=== PATIENT | male | born 1970 | race Caucasian/White ===

== ENCOUNTER 2019-10-03 14:17 | Outpatient (CLI) | payer OTHER, SELFPAY ==
[2019-10-03 16:19] LABS: Alanine Aminotransferase 28 U/L (4-50); Albumin Level 4.3 g/dL (3.5-5.1); Alkaline Phosphatase 69 U/L (38-126); Aspartate Amino Transferase 26 U/L (17-59); Blood Urea Nitrogen 15 mg/dL (9-20); Calcium 9.1 mg/dL (8.4-10.2); Carbon Dioxide 25 mmol/L (22-30); Chloride 104 mmol/L (98-107); Cholesterol 267 mg/dL (0-200); Estimated Glomerular Filt Rate > 60; Glucose 91 mg/dL (75-110); HDL Direct 56 mg/dL; Potassium 4.1 mmol/L (3.4-5.0); Sodium 138 mmol/L (137-145); Triglycerides 204 mg/dL (<150)
[2019-10-03 16:30] LABS: LDL Cholesterol Direct 175 mg/dL
[2019-10-03 16:49] LABS: Prostate Specific Antigen 0.6 ng/mL (< OR = 4.0)
== END 2019-10-03 14:18 | disposition home or self-care (01) ==
PROVIDERS: PCP Internal Medicine; Visit Provider Internal Medicine
DX: Z00.00 Encounter for general adult medical examination without abnormal findings (principal); Z13.220 Encounter for screening for lipoid disorders; Z12.5 Encounter for screening for malignant neoplasm of prostate
CPT/HCPCS: 36415; 80053; 80061; 84153; G0103

== ENCOUNTER 2020-05-12 08:48 | Outpatient (CLI) | payer OTHER, SELFPAY ==
--- NOTE | ~2020-05-12 | XR_ITS ---
EXAMINATION: XR knee RT 3V DATE: 05/12/2020 09:19 INDICATION: Right knee pain. TECHNIQUE: 3 views of right knee were obtained. COMPARISON: None. FINDINGS: Bone alignment is normal. No fracture. There is mild osteoarthritis of medial and patellofe moral compartments characterized by tiny marginal osteophytes. No knee joint effusion. IMPRESSION: 1. Mild right knee osteoarthritis. Reviewed, dictated and finalized at location A.
== END 2020-05-12 08:49 | disposition home or self-care (01) ==
LOC: ANHIMG 09:02
PROVIDERS: PCP Internal Medicine; Visit Provider Nurse Practitioner
DX: M25.569 Pain in unspecified knee (principal); M17.11 Unilateral primary osteoarthritis, right knee
CPT/HCPCS: 73562

== ENCOUNTER 2020-10-05 08:59 | Outpatient (CLI) | payer OTHER, SELFPAY | END 2020-10-05 09:00 | disposition home or self-care (01) | LOC: ANHCOVIDVC 08:59 | PROVIDERS: PCP Internal Medicine | DX: Z23 Encounter for immunization (principal) | CPT/HCPCS: 0001A; 91300 ==

== ENCOUNTER 2020-10-26 09:06 | Outpatient (CLI) | payer OTHER, SELFPAY | END 2020-10-26 09:07 | disposition home or self-care (01) | LOC: ANHCOVIDVC 09:06 | PROVIDERS: PCP Internal Medicine | DX: Z23 Encounter for immunization (principal) | CPT/HCPCS: 0002A; 91300 ==

== ENCOUNTER 2021-01-10 06:43 | Outpatient (CLI) | payer OTHER, SELFPAY ==
--- NOTE | ~2021-01-10 | MR_ITS ---
EXAMINATION: MR knee RT wo con DATE: 01/10/2021 07:30 INDICATION: Right knee pain TECHNIQUE: Magnetic resonance imaging (MRI) of the right knee was performed without intravenous contr ast. Sequences included coronal PD-weighted FSE, coronal PD-weighted FS FSE, sagittal T2-weighted FS E, sagittal PD-weighted FS FSE and axial PD weighted fat saturated FSE. COMPARISON: None. FINDINGS: Medial compartment: Complex tear of the body and posterior horn of the medial meniscus. There is anterior and cephalad di splacement of a meniscal flap arising from the junction of the body and posterior horn and which is n ow positioned cephalad to the body and deep to the proximal medial collateral ligament. There is part ial thickness cartilage loss with minimal chondral surface regularity along the weightbearing medial femoral condyle and the medial side of the medial tibial plateau. Lateral compartment: Lateral meniscus is normal. Mild chondral surface irregularity without appreciable loss of cartilage thickness at the lateral tibial plateau. Patellofemoral compartment: Chondral fissuring and partial-thickness chondral flap tear at the medial patellar facet involving gr eater than 50% the cartilage thickness and measuring 5 mm in width. Trochlear cartilage is normal. Ligaments and tendons: Posterior cruciate ligament is normal. There is a 7 x 1 x 2 mm intrasubstance ganglion cyst within th e otherwise intact appearing anterior cruciate ligament. The medial collateral ligament and fibular c ollateral ligament complex are normal. Heterotopic ossicle in the distal patellar tendon likely seque la of childhood [place]-Schlatter's disease. Patellar tendon is otherwise unremarkable. The visualized medial and lateral hamstring tendons as well as the iliotibial band are normal. Fluid: Small right knee joint effusion. No loose osteochondral bodies identified. Osseous/other: Normal marrow signal. No fracture or abnormal marrow replacing process. IMPRESSION: 1. Complex medial meniscal tear including a displaced meniscal flap. 2. Mild medial compartment predominant tricompartmental osteoarthritis. 3. Small right knee joint effusion. Reviewed, dictated and finalized at location A.
== END 2021-01-10 06:44 | disposition home or self-care (01) ==
LOC: ANHIMG 06:45
PROVIDERS: PCP Internal Medicine; Visit Provider Orthopaedic Surgery
DX: M25.561 Pain in right knee (principal); S83.231A Complex tear of medial meniscus, current injury, right knee, initial encounter; S83.194A Other dislocation of right knee, initial encounter; M17.11 Unilateral primary osteoarthritis, right knee; M25.461 Effusion, right knee
CPT/HCPCS: 73721

== ENCOUNTER → 2021-06-03 04:04 | Outpatient (CLI) | payer OTHER, SELFPAY ==
[2021-06-03 17:24] LABS: SARS-CoV-2 RNA PCR Negative
== END ==
PROVIDERS: PCP Internal Medicine; Visit Provider Internal Medicine
DX: Z20.822 Contact with and (suspected) exposure to COVID-19 (principal)
CPT/HCPCS: C9803; U0003; U0005

== ENCOUNTER 2021-07-04 00:05 | Day surgery (SDC) | payer OTHER, SELFPAY ==
[2021-06-28 13:30] VITALS: BMI 34.9
--- NOTE | 2021-06-28 13:37 | PC.NURSE ---
Report to the Outpatient Waiting Room, entrance under the green pavilion located off [facility], at time _0830__ on date 07-04-21. OR Time: ___1030_. - You and your visitor will be asked a series of questions to screen for COVID 19 for your protection. - A mask is required within the hospital. - Only one visitor is allowed at this time. Patient visitors will be guided where to wait when not with patient. Preoperative COVID Testing Requirements: No COVID Test needed if: (proof is required; if not received patient will have Rapid Test prior to entry) - Patient has received COVID Vaccine at least 14 days prior to procedure date or - Patient has positive COVID test result within last 90 days of surgery date. COVID Test needed if above criteria is not met If not COVID vaccinated a COVID test must be conducted within 72 hours of surgery and patient is asked to isolate self from time of testing until procedure. You will go to the [facility] for your COVID testing. The [employer] [facility] is located at the corner of [address] from [facility]. You will only be called if COVID results are positive and your surgeon may reschedule your elective surgery date. Patients may have clear liquids (water, carbonated beverages, clear teas, apple juice) until 3 hours prior to surgery with a maximum of 20 ounces. - No food from midnight until time of surgery - Infants may have breast milk until 4 hours before surgery, formula 6 hours prior to surgery. - Children will be allowed to drink immediately following surgery. If applicable, please bring a bottle or sippy cup to assist with drinking. Juice, water, soda, and popsicles are readily available. For infants on formula, please bring formula the day of surgery. Pacifiers are allowed. Take the following medications with a SIP of water the morning of surgery: Medications to discontinue per physician Date to take last dose Please no make-up, nail maltese, hairspray, perfume, deodorant, or body powder the day of surgery. No jewelry (including any body piercings) or valuables the day of surgery, leave them at home. Please take a shower or bath the night before, or the morning of, surgery with an antibacterial soap. Wear comfortable, loose fitting clothing. Children are encouraged to wear pajamas. - Jewelry must be removed prior to entering the operating room. Rings and piercings that are not removed may be cut off. - The hospital will not accept responsibility for valuables. - Please leave all valuables, including medications, at home the day of surgery. If you are going home after surgery, a licensed otr van cdl truck driver must drive you home. - NO public transportation without another adult. - We recommend that an adult stay with you for 24 hours following discharge. - We also recommend that you do not drive, make important decision, drink alcoholic beverages, or take any drugs that were not prescribed by your health care provider for at least 24 hours after your discharge time. For Pediatric surgeries, we recommend two adults accompany the child home (only one inside the building at this time). Follow any additional instructions given to you from your surgeon. Telephone instructions given to __Patient__and asked if any additional questions and then verbalized understanding. Patient advised to call surgeon office or pre surgery nurse liaison [phone] if any additional questions.
--- NOTE | 2021-07-03 10:21 | P.PNAN_ITS ---
Anes - Initial Pre Proc Eval Procedure: Operation Date: 07/04/21 10:30 Proposed Procedures p Right Knee Arthroscopy,Partial Meniscectomy - Wayne Thapa MD Date/Time: 07/03/21 10:21 Surgeon: Wayne Thapa MD Pre Op Diagnosis: Right knee medial meniscal tear Patient Data Age: 51 Gender: M Height: 1.8 m Weight: 113.6 kg Allergies Allergy/AdvReac Type Severity Reaction Status Date / Time No Known Allergies Allergy Unknown Verified 07/04/21 08:39 Home Medications Medication Instructions Recorded Confirmed Type No Home Medications 01/04/21 07/04/21 History Patient hx anesthesia problems: none Family hx anesthesia problems: none Results Review: All pre-operative results and documents have been reviewed as part of the pre-operative evaluation. [facility] Past Medical History Medical History (Updated 07/03/21 @ 10:21 by Arvin Aldana MD) Obesity Osteoarthritis of right knee Tear of medial meniscus of right knee, current Tobacco abuse Family History Family History Other Acute myocardial infarction Diabetes mellitus Family history of arthritis Family history of cardiovascular disease Family history of gout Family history of malignant neoplasm Social History Social History Smoking packs per day: 0.5 Smoking cigarettes per day: 10.0 Years smoked: 30 Smoking pack-years: 15.00 Smoking status: Current every day smoker Tobacco type: cigarettes Alcohol intake: current Drinks per week: 5 Alcohol use details: beer Substance use: current Substance use type: marijuana Living arrangements: with family 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 Informed Consent: The patient's anesthetic plan and its attendant risks and bene fits were discussed with the patient/family/POA. Questions were solicited and answers provided to the satisfaction of the patient/family/POA.
[2021-07-04] VITALS (9 sets, daily range): BP systolic 123–143; BP diastolic 84–93; PULSE 50–67; RESP 10–18; TEMP 36.1–36.2; O2SAT 99–100
[2021-07-04] MEDS: ACETAMINOPHEN 500 MG TABLET 1000 MG PO (08:42)
[2021-07-04] MEDS: LACTATED RINGERS 1,000 ML 30 ML IV CONT (09:06)
[2021-07-04] MEDS: KETOROLAC 15 MG/ML VIAL (*BKC) IV PUSH (09:06)
--- NOTE | 2021-07-04 09:58 | WPDHPUPDATE1 ---
History and Physical Update Update Date/Time: 07/04/21 09:58 History and Physical has been reviewed, including an updated exam of the patient. There are NO changes in the patient's condition. Risks, benefits, and alternatives have been discussed and questions answered. Patient agrees to proceed with procedure.
[2021-07-04] MEDS: ceFAZolin 2 GM/D5W 50 ML 2 GM/50 ML BAG IVPB (10:35)
[2021-07-04] MEDS: LIDOCAINE HCL 1% LOCAL INJ 20 ML VIAL INFILTRATE (11:03)
--- NOTE | 2021-07-04 11:39 | P.OP_ITS ---
Procedure Note - Detailed Date of Procedure 07/04/21 Pre-op Diagnosis Right knee medial meniscal tear Post-op Diagnosis same Procedure Performed Right knee arthroscopy with partial medial meniscectomy Surgeon Wayne Thapa MD Anesthesia general Description of Procedure The patient was identified and proper site identified. He was taken to the operating room and transferred to the OR table placing her supine taking care to pad the torso and extremities. After general anesthetic induction and intubation, a nonsterile tourniquet was placed high on the right thigh but was not used. The right lower extremity was positioned, prepped and draped in usual sterile fashion. 10 cc of 1% lidocaine was injected into the subcutaneous tissue in the area of the portals at start of the procedure, and an additional 10 at the end. The portals were established and the arthroscopy was carried out. Articular cartilage in the anterior compartment showed some fraying and fibrillation which was mild. Lateral meniscal and articular cartilage was in excellent shape. Anterior posterior cruciate ligaments noted to be in continuity. Gutters and pouch were clear. In the medial compartment there was complex tearing of the medial meniscus with a displaced component which could not be reduced. This involved the posterior horn into the midbody. This was contoured back to stable rim with a shaver and then the ArthroCare Wand was used for hemostasis. The knee was flushed with a copious amount of arthroscopic f luid and equipment was removed. Portals were closed with three O nylon suture and a sterile dressing was applied. He tolerated the procedure well, was awakened, extubated and taken to recovery area in stable condition. There were no known intraoperative complications. Estimated blood loss was negligible. He received perioperative antibiotics. Estimated Blood Loss 15 Tourniquet Time 0 Drains No Packing No Pathology none sent Complications No immediate complications Condition stable Disposition PACU
[2021-07-04] MEDS: oxyCODONE HCL (*CRX) 5 MG TAB IR PO (13:17)
== END 2021-07-04 13:56 | disposition home or self-care (01) ==
PROVIDERS: PCP Internal Medicine; Visit Provider Orthopaedic Surgery
PROC: (CPT 29870; principal; 2021-07-04 10:30)
DX: M23.221 Derangement of posterior horn of medial meniscus due to old tear or injury, right knee (principal); M17.11 Unilateral primary osteoarthritis, right knee; E66.9 Obesity, unspecified; M25.461 Effusion, right knee; Z68.35 Body mass index [BMI] 35.0-35.9, adult; F17.210 Nicotine dependence, cigarettes, uncomplicated; F12.90 Cannabis use, unspecified, uncomplicated
CPT/HCPCS: 29881; A9270; J0690; J1100; J1170; J1885; J2250; J2405; J2704; J3010; J7120

== ENCOUNTER 2021-07-07 07:15 | Outpatient (RCR) | payer OTHER, SELFPAY ==
--- NOTE | 2021-07-07 10:52 | PTOPEVAL ---
Thank you for referring Finn Valverde to [facility].? The patient is scheduled to be seen for therapy? 2 x/week for 5 weeks. Please review, sign, date and return this plan of care DAYRON. I agree with and certify that the following plan of care is medically necessary. Referring Physician Date Attending Provider: Wayne Thapa MD Problem Diagnosis s/p arthroscopic surgery right knee, torn medial meniscus Onset 07/04/21 Additional Evaluation Detail He started having right knee pain ~ 1 yrs ago. No known injury Subjective Information He c/o knee soreness since Query Text:As Reported By Patient/ surgery with occasional sharp Family pain. He is not performing any exercises. 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 Reports limitations with prolonged standing and steps. Limitation with knee motion. Pain Assessment Right Knee(s) Reported Pain Level 5 Pain Description Aching,Sharp Pain Frequency Acute,Intermittent Lowest Pain Intensity 0 Greatest Pain Intensity 5 Pain Aggravating Factors Bending,Exercise/Activity, Prolonged Position,Stair Climbing,Weight Bearing/ Standing Lower Extremity Range of Motion General Lower Extremity Range of Motion Gross Lower Extremity Range of Motion left knee ROM: 0-125dg Knee Range of Motion Right Knee Flexion Range of Motion - Active 120 Knee Extension Range of Motion - Active -4 Lower Extremity Muscle Strength Testing Hip Strength Right Hip Flexion Strength 3 Fair Hip Extension Strength 4- Good - Hip Abduction Strength 4- Good - Knee Strength Right Knee Flexion Strength 4- Good - Knee Extension Strength 3 Fair Knee Strength Comments no extensor lag noted with SLR Muscle Length Testing Muscle Length Testing Piriformis w/Hip Neutral (R) Severe Tightness,(L) Severe Tightness Left Hamstring Length -35:(90 - 90 Position) Right Hamstring Length -35:(90 - 90 Position) Posture Posture Standing Position Weight Distribution Weight Shifted Left Hip Posture (L) Externally Rotated,(R) Externally Rotated Knee Posture (R) Excess Flexion Patellar Posture (L) Infer
--- NOTE | 2021-07-11 07:25 | PCPTNOTE ---
Patient called & cancelled scheduled appointment this date due to no reason.
--- NOTE | 2021-07-13 08:01 | PCPTNOTE ---
Pt called and cancelled his remaining visits due to decided to attend therapy closer by home.
--- NOTE | 2021-07-13 08:02 | PCPTNOTE ---
Admitting Provider: Attending Provider: Wayne Thapa MD Patient:Finn Valverde Date of :1970 Physical Therapy Discharge Summary Patient has not returned for any further treatments since 07/07/2021, due to has decided to attend therapy closer to home. He will be discharged at this time. Patient?s initial visit was on 07/07/2021 07:30 and he had a total of 1 visits. The goals have been not met due to only 1 visit. Thank you for referring this patient to [facility]. Please review, sign, date and return this discharge summary DAYRON. I have been updated about the patient's current status and I agree with discharge from the above service at this time. Referring Physician Date
== END 2021-07-13 12:00 | disposition home or self-care (01) ==
LOC: ANHPT 07:15
PROVIDERS: PCP Internal Medicine; Visit Provider Orthopaedic Surgery
DX: Z48.89 Encounter for other specified surgical aftercare (principal); Z98.890 Other specified postprocedural states
CPT/HCPCS: 97014; 97110; 97161; G0283

== ENCOUNTER 2022-02-14 15:45 | Inpatient (IN) | payer OTHER, SELFPAY ==
--- NOTE | ~2022-02-14 | CT_ITS ---
EXAMINATION: CT abdomen pelvis w con DATE: 02/14/2022 17:59 INDICATION: No BM 4 days, hx of hernia repair, abd pain TECHNIQUE: Computed tomography (CT) of the abdomen and pelvis was performed with 100 mL Omnipaque-300 intravenous contrast. Automated exposure control and iterative reconstruction technique were employe d. The dose-length product was 1297.07 mGy-cm. COMPARISON: None. FINDINGS: Lower thorax: Peripheral right lower lobe intrapulmonary lymph node versus granuloma. Liver: Enlarged fatty infiltrated liver. Biliary/Gallbladder: Gallbladder is absent. No bile duct dilation. Pancreas: No mass or duct dilation. Spleen: Normal. Adrenals:No mass. Kidneys: Scattered bilateral hypodensities that are too small to characterize but most likely represe nt cysts. GI tract: No small or large bowel dilation. Normal appendix. Short segment distal sigmoid wall thicke keila with surrounding inflammatory change and a focus of extraluminal gas extending superiorly into t he adjacent mesenteric fat. Mesentery/Peritoneum: No ascites, mass, or free air, except as noted above. Retroperitoneum: No mass. Minimal atherosclerotic calcifications. Pelvis: Pelvic organs are within normal limits. Soft Tissues: Bilateral fat-containing inguinal hernias. Bones: No acute osseous finding. IMPRESSION: Complicated acute sigmoid diverticulitis, with contained perforation. Results reported telephonically to Paco Stinson APRN by Dr. Melo at 6:05 PM on 02/14/2022. Reviewed, dictated and finalized at location K. IMPRESSION: Complicated acute sigmoid diverticulitis, with contained perforation. Results reported telephonically to Paco Stinson APRN by Dr. Melo at 6:05 PM o n 02/14/2022.
--- NOTE | ~2022-02-14 | XR_ITS ---
EXAMINATION: XR abdomen obstructive series DATE: 02/15/2022 07:46 INDICATION: Acute diverticulitis. TECHNIQUE: Frontal supine and upright views of the abdomen were obtained. COMPARISON: CT dated 02/14/2022 FINDINGS: Moderate amount of gas scattered throughout the colon. No dilated loops of gas-filled small bowel to suggest obstruction. No free intraperitoneal gas. Multiple cholecystectomy clips in right upper quadr ant and likely dropped clip in the deep pelvis. Visualized lung bases are clear. Heart size is normal . IMPRESSION: 1. No free intraperitoneal gas or dilated gas-filled loops of bowel to suggest obstruction. Reviewed, dictated and finalized at location A.
[2022-02-14 15:49] VITALS: BP 149/79; PULSE 95; RESP 16; TEMP 37.9; O2SAT 99
--- NOTE | 2022-02-14 16:53 | ED.ABDPAIN ---
HPI - Abdominal Pain General Chief Complaint: Abdominal Pain Stated Complaint: abd pain, vomiting Time Seen by Provider: 02/14/22 16:51 History of Present Illness HPI narrative: 51-year-old male presents to the emergency room for evaluation of constipation and abdominal pain. Patient has a history of a cholecystectomy and inguinal hernia repair. States that he has not had a bowel movement since Sunday. Attempted to take magnesium citrate this morning, and he threw it back up. Denies any localized abdominal pain or nausea. Patient states he has had no p.o. intake in 24 hours. States pain radiates into his back and into his legs. Related Data Home Medications Medication Instructions Recorded Confirmed No Home Medications 07/19/21 02/14/22 Allergies Allergy/AdvReac Type Severity Reaction Status Date / Time No Known Allergies Allergy Unknown Verified 02/14/22 15:52 Review of Systems Review of Systems: CONSTITUTIONAL: Denies fever, chills, or sweats. EYES: Denies visual changes, redness, or discharge. ENT: Denies rhinorrhea, congestion, sore throat, or otalgia. CARDIOVASCULAR: Denies chest pain, palpitations, or edema. RESPIRATORY: Denies cough or dyspnea. GASTROINTESTINAL: Reports generalized abdominal pain and constipation GENITOURINARY: Denies dysuria or hematuria. SKIN: Denies rash or itching. MUSCULOSKELETAL: Denies back pain, joint pain, or myalgia. NEUROLOGIC: Denies headache, numbness, dizziness, or weakness. PSYCHIATRIC: Denies anxiety or depression. [facility] Past Medical History Medical History Obesity Osteoarthritis of right knee Tear of medial meniscus of right knee, current Tobacco abuse Surgical History Surgical History History of arthroscopy of right knee July 04, 2021 Partial medial meniscectomy Family History Family History Mother Family history of malignant neoplasm IBS (irritable bowel syndrome) Father Family history of gout Family history of cardiovascular disease Diabetes mellitus Family history of arthritis Acute myocardial infarction Sibling Family history of malignant neoplasm Social History Social History Smoking packs per day: 0.5 Smoking cigarettes per day: 10.0 Years smoked: 30 Smoking pack-years: 15.00 Smoking status: Current every day smoker Tobacco type: cigarettes Alcohol intake: current Drinks per week: 5 Alcohol use details: beer Substance use: current Substance use type: marijuana 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 HEAD: Normocephalic, atraumatic. EYES: Conjunctivae normal, PERRLA and EOMI. CHEST: Clear to auscultation. No respiratory distress. No wheezes rales or rhonchi. No tenderness. HEART: Regular rate and rhythm. No murmur heard. Normal peripheral pulses. ABDOMEN: Soft, distended, hypoactive bowel sounds. BACK: No CVA tenderness SKIN: Warm, dry, no rash. No noted wounds NEURO: No focal deficits. Alert and oriented x3. MAEW. CN's II-XI intact bilaterally, normal gait PSYCH: Cooperative. Normal mood and affect. Course Vital Signs Vital signs: Vital Signs Temperature 37.9 C H 02/14/22 15:49 Pulse Rate 95 02/14/22 15:49 Respiratory Rate 16 02/14/22 15:49 Blood Pressure 149/79 H 02/14/22 15:49 Pulse Oximetry 99 02/14/22 15:49 Temperature 36.1 C L 02/16/22 05:19 Pulse Rate 68 02/16/22 05:19 Respiratory Rate 16 02/16/22 05:19 Blood Pressure 129/78 02/16/22 05:19 Pulse Oximetry 98 02/16/22 05:19 Oxygen Delivery Room Air 02/16/22 08
[2022-02-14 17:03] LABS: Basophils Absolute Auto 0.1 K/mm3 (0.0-0.1); Basophils Percent Auto 0.3 % (0.2-1.2); Hematocrit 44.5 % (42.0-52.0); Hemoglobin 14.6 g/dL (14.0-18.0); Immature Granulocyte Absolute 0.07 K/mm3 (0.00-0.031); Immature Granulocyte Percent A 0.4 % (0-0.5); Lymphocytes Absolute Auto 0.57 K/mm3 (0.9-3.2); Lymphocytes Percent Auto 3.5 % (18.3-44.2); Mean Corpuscular HGB Conc 32.8 g/dl (32-36); Mean Corpuscular Hemoglobin 29.6 pg (26-34); Mean Corpuscular Volume 90.1 fl (80-100); Mean Platelet Volume 8.6 fl (7.4-10.4); Monocytes Absolute Auto 1.1 K/mm3 (0.1-0.6); Monocytes Percent Auto 6.5 % (2.6-8.5); Neutrophils Absolute Auto 14.7 K/mm3 (1.3-6.7); Neutrophils Percent Auto 89.3 % (45.5-73.1); Platelet Count Result 231 k/mm3 (150-375); Red Blood Count 4.94 M/mm3 (4.6-6.20); Red Cell Distribution Width 13.5 % (11.5-14.5); White Blood Count 16.4 K/mm3 (4.5-10.0)
[2022-02-14 17:11] LABS: Alanine Aminotransferase 21 U/L (6-50); Albumin Level 4.3 g/dL (3.5-5.1); Alkaline Phosphatase 73 U/L (38-126); Anion Gap 5 mmol/L (8-16); Aspartate Amino Transferase 19 U/L (17-59); Bilirubin,Total 1.2 mg/dL (0.2-1.3); Blood Urea Nitrogen 10 mg/dL (9-20); Calcium 8.4 mg/dL (8.4-10.2); Carbon Dioxide 27 mmol/L (22-30); Chloride 103 mmol/L (98-107); Estimated CRCL calculation 95 ml/min; Estimated Glomerular Filt Rate > 60; Glucose 132 mg/dL (65-110); Lipase 37 U/L (23-300); Potassium 3.7 mmol/L (3.4-5.0); Sodium 135 mmol/L (137-145)
[2022-02-14 17:26] LABS: Appearance Urine Clear (Clear); Bilirubin Urine 1+ (Negative); Blood Urine Trace-lysed (Negative); Color Urine Yellow (Yellow); Glucose Urine UA Negative (Negative); Ketones Urine 1+ mg/dL (Negative); Leukocyte Esterase Ur Negative LEU/UL (Negative); Nitrate Urine Negative (Negative); Protein Urine 1+ mg/dL (Negative); Specific Grav Ur 1.025 (1.001-1.035); Urobilinogen Urine 0.2 mg/dL (<2.0)
[2022-02-14 17:36] LABS: Mucus Urine Moderate /lpf; Squamous Epithelial Cell Urine Rare /hpf (Few); WBC Urine 0-3 /hpf
[2022-02-14 17:37] LABS: Add Urine Microscopic? YES
[2022-02-14 18:35] VITALS: BP 147/82; PULSE 78; RESP 16; TEMP 36.8; O2SAT 98
[2022-02-14 19:19] VITALS: BP 146/86; PULSE 84; RESP 18; TEMP 36.8; O2SAT 100
[2022-02-14] MEDS: BISACODYL 10 MG SUPPOSITORY RECTAL (19:37)
[2022-02-14 20:30] VITALS: BP 136/80; PULSE 70; RESP 16; TEMP 36.4; O2SAT 98
[2022-02-14 21:08] VITALS: BMI 34.4
[2022-02-14 21:13] VITALS: BP 133/69; PULSE 73; RESP 16; TEMP 36.4; O2SAT 99
--- NOTE | 2022-02-14 21:19 | ADMGEN ---
This patient, Finn Valverde, was admitted to Medical Room 349-01. Patient/family oriented to hospital policies and general routines including ID bracelet, bed and alarms, visiting hours, pain management, procedures, bathroom and other care routines, personal items, smoking policy, room service/diet, and visiting hours. Information on how to activate the Rapid Response Team has been discussed. Patient/Family are encouraged to report perceived risks to care and to ask questions if they do not understand what they are told or what they should do.
[2022-02-14] MEDS: SODIUM CHLORIDE 0.9% IV 1,000 ML 125 ML IV CONT (21:22)
[2022-02-15] MEDS: ACETAMINOPHEN 500 MG TABLET 1000 MG PO ×3 (01:07→18:51)
--- NOTE | 2022-02-15 01:08 | PM.IMHP ---
H&P: HPI History of Present Illness Date/Time: 02/15/22 01:08 Chief Complaint: Lower abdominal pain Narrative: This is a 51-year-old white male who presented to the emergency room here at [place] earlier today on 02/15/2020 to for evaluation of constipation and abdominal pain.? Patient has a history of a cholecystectomy asif right inguinal hernia repair.? States that he has not had a bowel movement since F Sunday.? Attempted to take magnesium citrate this morning, and he threw it back up.? Denies any localized abdominal pain or nausea.? Patient states he has had no p.o. intake in 24 hours.? States pain radiates into his back and into his legs. work[place] [id number] with most the rest of his labs looking normal although he had 89% elevation in neutrophils. CT scan of the abdomen and pelvis revealed a sigmoid diverticulitis with perforation and a contained abscess. This is fairly small in the mid sigmoid colon. Patient also was noted to have full fatty liver disease on the CT. He is admitted now for observation and IV antibiotics with bowel rest. Review of Systems Review of Systems: All systems reviewed & are unremarkable except as noted in HPI and below (HPI) Constitutional: Constitutional: Reports as per HPI, Denies chills and Denies fever(s) Eyes: Eyes: Reports no additional eye complaints ENT: Reports Normal hearing present and Denies dizziness Cardiovascular: Cardiovascular: Reports no additional cardiovascular complaints, Denies chest pain and Denies irregular heart rhythm Respiratory: Respiratory: Reports no additional respiratory complaints Gastrointestinal: Gastrointestinal: Reports no additional gastrointestinal complaints, Denies abdominal pain and Denies bloating Comments: Patient typically has a bowel movement every day. Patient has not had a colonoscopy in the past. Patient has never previously had an episode of diverticulitis that he remembers. Patient has lso had his gallbladder out and also had a groin hernia fixed many years ago. Genitourinary: Genitourinary: Denies hematuria Musculoskeletal: Musculoskeletal: Denies back pain Integumentary/Breasts: Skin/Breast: Reports system reviewed and no additional complaints, except as docu Neurologic: Reports Normal hearing present, Denies Abnormal speech present, Denies confusion and Denies dizziness Psychiatric: Psychiatric: Reports no additional psychiatric complaints and Denies confusion Endocrine: Endocrine: Reports no additional endocrine complaints Hematologic/Lymphatic: Hematologic/Lymphatic: Denies easy bleeding and Denies easy bruising Allergic/Immunologic: Allergic/Immunologic: Reports no additional allergic/immunologic complaints PMFSH Past Medical History Medical History Obesity Osteoarthritis of right knee Tear of medial meniscus of right knee, current Tobacco abuse Surgical History Surgical History History of arthroscopy of right knee July 04, 2021 Partial medial meniscectomy Family History Family History Mother Family history of malignant neoplasm IBS (irritable bowel syndrome) Father Family history of gout Family history of cardiovascular disease Diabetes mellitus Family history of arthritis Acute myocardial infarction Sibling Family history of malignant neoplasm Social History Social History Smoking packs per day: 0.5 Smoking cigarettes per day: 10.0 Years smoked: 30 Smoking pack-years: 15.00 Smoking status: Current every day smoker Tobacco type: cigarettes Alcohol intake: current Drinks per week: 5 Alcohol use details: beer Substance use: current Substance use type: marijuana Additional occupation/education comments: [employer]
[2022-02-15] MEDS: SODIUM CHLORIDE 0.9% IV 1,000 ML 125 ML IV CONT ×2 (04:39→13:54)
[2022-02-15 04:40] VITALS: BP 140/64; PULSE 70; RESP 16; TEMP 36.1; O2SAT 99
[2022-02-15] MEDS: HYDROcodone/acetaminophen (*CRX) 7.5-325 MG TABLET 1 TAB PO (04:40)
[2022-02-15 06:00] LABS: Basophils Percent Auto 0.3 % (0.2-1.2); Eosinophils Percent Auto 0.1 % (0-4.4); Hematocrit 41.7 % (42.0-52.0); Hemoglobin 14.1 g/dL (14.0-18.0); Immature Granulocyte Absolute 0.07 K/mm3 (0.00-0.031); Immature Granulocyte Percent A 0.5 % (0-0.5); Lymphocytes Absolute Auto 1.23 K/mm3 (0.9-3.2); Lymphocytes Percent Auto 8.5 % (18.3-44.2); Mean Corpuscular HGB Conc 33.8 g/dl (32-36); Mean Corpuscular Hemoglobin 30.1 pg (26-34); Mean Corpuscular Volume 88.9 fl (80-100); Mean Platelet Volume 8.7 fl (7.4-10.4); Monocytes Absolute Auto 0.8 K/mm3 (0.1-0.6); Monocytes Percent Auto 5.6 % (2.6-8.5); Neutrophils Absolute Auto 12.4 K/mm3 (1.3-6.7); Platelet Count Result 224 k/mm3 (150-375); Red Blood Count 4.69 M/mm3 (4.6-6.20); Red Cell Distribution Width 13.4 % (11.5-14.5); White Blood Count 14.5 K/mm3 (4.5-10.0)
[2022-02-15 06:16] LABS: Lactic Acid Reflex 0.8 mmol/L (0.7-2.0)
[2022-02-15 06:17] LABS: Anion Gap 7 mmol/L (8-16); Blood Urea Nitrogen 8 mg/dL (9-20); Calcium 8.3 mg/dL (8.4-10.2); Carbon Dioxide 23 mmol/L (22-30); Chloride 106 mmol/L (98-107); Estimated CRCL calculation 96 ml/min; Estimated Glomerular Filt Rate > 60; Glucose 122 mg/dL (65-110); Magnesium 2.5 mg/dL (1.6-2.3); Potassium 3.4 mmol/L (3.4-5.0); Sodium 136 mmol/L (137-145)
[2022-02-15] MEDS: ENOXAPARIN 40 MG/0.4 ML SYRINGE SUB-Q (08:54)
[2022-02-15 09:55] VITALS: O2SAT 96
--- NOTE | 2022-02-15 10:36 | PC.NURSE ---
Per Dr. Randhawa's H&P report, plan for patient is bowel rest, IV fluids, and IV antibiotic therapy. Patient has no orders for antibiotics. Called preference one for Dr. Randhawa and left message with Nellie for orders.
[2022-02-15 14:00] VITALS: BP 117/61; PULSE 73; RESP 19; TEMP 36.2; O2SAT 97
--- NOTE | 2022-02-15 16:54 | PM.PNGS ---
Progress Note: A&P Assessment and Plan (1) Diverticulitis of large intestine with perforation and abscess without bleeding: Code(s): K57.20 - Diverticulitis of large intestine with perforation and abscess without bleeding Status: Acute Assessment and Plan: Clinically improving. White blood cell count trending down. Abdominal pain is less today. Continue IV Zosyn. Will advance to full liquids. Stop IV fluids. Consult the dietitian for education on low versus high-fiber diet. We will repeat labs tomorrow morning. Could potentially discharge in the next 1-2 days if he continues to improve. (2) Obesity: Code(s): E66.9 - Obesity, unspecified Status: Acute (3) Tobacco abuse: Code(s): Z72.0 - Tobacco use Status: Acute Plan I have discussed the patient's case and plan of care with Dr. Randhawa. Subjective Subjective Date/Time Seen: 02/15/22 16:54 Patient reports: no new complaints, feels better, pain is less, tolerating liquids well, flatus, diarrhea (X3 today, no blood in stool) and afebrile Interval history: Patient seen and examined. He reports feeling much better today. His abdominal pain has improved and he feels less tender. Denies any nausea or vomiting. He has walked in the room, but not in the halls. He does endorse a headache that has improved slightly throughout the day with Tylenol. No other complaints at this time. Review of Systems Review of Systems: All systems reviewed & are unremarkable except as noted in HPI and below Exam Const: General: comfortable, no acute distress and awake Orientation/consciousness: patient oriented x3 GI: Inspection: normal to inspection and non-distended GI Palp: Yes Soft to palpation, Yes Tenderness to palpation present (GI) (Across lower abdomen, worse in the left lower quadrant), No Guarding due to palpation present (GI) and No Rebound tenderness present Auscultation: normal bowel sounds Extrem: General: normal to inspection Psych: Mental Status: mental status grossly normal Objective Data Vital Signs Vital Signs: Vital Signs - 24 hr 02/14/22 18:35 02/14/22 19:19 02/14/22 20:30 Temperature 98.3 F 98.3 F 97.6 F Pulse Rate 78 84 70 Respiratory Rate 16 18 16 Blood Pressure 147/82 H 146/86 H 136/80 Pulse Oximetry 98 100 98 Oxygen Delivery 02/14/22 21:13 02/14/22 23:15 02/15/22 04:40 Temperature 97.5 F L 97 F L Pulse Rate 73 70 Respiratory Rate 16 16 Blood Pressure 133/69 140/64 Pulse Oximetry 99 99 Oxygen Delivery Room Air 02/15/22 09:55 02/15/22 08:00 02/15/22 14:00 Temperature 97.1 F L Pulse Rate 73 Respiratory Rate 19 Blood Pressure 117/61 Pulse Oximetry 96 97 Oxygen Delivery Room Air Room Air Intake/Output Intake/Output: Intake & Output 02/12/22 02/13/22 02/14/22 02/15/22 23:59 23:59 23:59 23:59 Intake Total 150 3150 Balance 150 3150 Meds/Results Medications: Active Medications Generic Name Dose Route Start Last Admin Trade Name Freq PRN Reason Stop Dose Admin Acetaminophen 1,000 mg 02/14/22 18:51 02/15/22 13:53 Acetaminophen 500 Mg Tablet PO 1,000 mg Q4H PRN Administration Mild Pain (1-3) or Fever Hydrocodone Bitart/Acetaminophen 1 tab 02/14/22 18:51 Hydrocodone/Acetaminophen (*Crx) 5-325 Mg Tablet PO Q4H PRN Moderate Pain (4-6) Hydrocodone Bitart/Acetaminophen 1 tab 02/14/22 19:05 02/15/22 04:40 Hydrocodone/Acetaminophen (*Crx) 7.5-325 Mg Tablet PO 1 tab Q6H PRN Administration PAIN 7-10 Bisacodyl 10 mg 02/14/22 18:51 Bisacodyl 10 Mg Suppository RECTAL ONCE PRN Constipation Enoxaparin Sodium 40 mg 02/15/22 09:00 02/15/22 08:54 Enoxaparin 40 Mg/0.4 Ml Syringe SUB-Q 40 mg DAILY KALYAN Administration Sodium Chloride 1,000 mls @ 125 mls/hr 02/14/22 18:35 02/15/22 13:54 Normal Saline Iv IV CONT 125 mls/hr .Q8H KALYAN Administration Piperacillin/Tazobactam/Dextrose
[2022-02-15 19:56] VITALS: BP 124/75; PULSE 60; RESP 18; TEMP 36.3; O2SAT 99
[2022-02-16 05:19] VITALS: BP 129/78; PULSE 68; RESP 16; TEMP 36.1; O2SAT 98
[2022-02-16 05:40] LABS: Hematocrit 38.8 % (42.0-52.0); Hemoglobin 12.5 g/dL (14.0-18.0); Mean Corpuscular HGB Conc 32.2 g/dl (32-36); Mean Corpuscular Hemoglobin 29.6 pg (26-34); Mean Corpuscular Volume 91.9 fl (80-100); Mean Platelet Volume 8.8 fl (7.4-10.4); Platelet Count Result 215 k/mm3 (150-375); Red Blood Count 4.22 M/mm3 (4.6-6.20); Red Cell Distribution Width 13.3 % (11.5-14.5); White Blood Count 11.1 K/mm3 (4.5-10.0)
[2022-02-16 05:50] LABS: Anion Gap 3 mmol/L (8-16); Blood Urea Nitrogen 8 mg/dL (9-20); Calcium 8.2 mg/dL (8.4-10.2); Carbon Dioxide 25 mmol/L (22-30); Chloride 107 mmol/L (98-107); Estimated CRCL calculation 88 ml/min; Estimated Glomerular Filt Rate > 60; Glucose 108 mg/dL (65-110); Potassium 3.5 mmol/L (3.4-5.0); Sodium 135 mmol/L (137-145)
[2022-02-16] MEDS: ENOXAPARIN 40 MG/0.4 ML SYRINGE SUB-Q (08:36)
--- NOTE | 2022-02-16 10:10 | PM.DS ---
DS: Admitting Diagnosis Discharge Date 02/16/22 Admitting Diagnosis Acute sigmoid diverticulitis with perforation but without abscess Obesity BMI 34 Osteoarthritis of right knee Tobacco abuse DS: Discharge Diagnosis Discharge Diagnosis (1) Diverticulitis of large intestine with perforation and abscess without bleeding: Code(s): K57.20 - Diverticulitis of large intestine with perforation and abscess without bleeding Status: Acute (2) Obesity: Code(s): E66.9 - Obesity, unspecified Status: Acute Assessment and Plan: Encouraged diet and lifestyle modifications to promote weight loss. Follow-up with PCP. (3) Tobacco abuse: Code(s): Z72.0 - Tobacco use Status: Acute Assessment and Plan: Encourage cessation. Follow-up with PCP for further management. (4) Osteoarthritis of right knee: Qualifiers: Osteoarthritis type: primary Qualified Code(s): M17.11 - Unilateral primary osteoarthritis, right knee Code(s): M17.11 - Unilateral primary osteoarthritis, right knee Status: Chronic Assessment and Plan: Stable, no acute changes. Follow-up with PCP. Plan I have discussed the patient's case and plan of care with Dr. Randhawa. DS: Summary Hospital Course Reason for hospitalization: This is a 51-year-old male who presented to the emergency room on 02/15/2020 for evaluation of constipation and abdominal pain.?Work-up in the ED showed CT evidence of acute sigmoid diverticulitis with microperforation, no abscess. He had associated leukocytosis. He was admitted in this setting for further treatment and evaluation. Hospital Course: He was admitted and treated with IV Zosyn, IV fluids, bowel rest, and analgesics. He was slowly advanced on his diet to a low fiber diet today. He was monitored with serial abdominal exams and labs. Dietitian was consulted for education on a low fiber vs high fiber diet. WBC continued to trend down and is at only 11,000 on discharge. His abdominal pain and tenderness continued to improve. Bowels are moving and he is tolerating a diet this morning. He is not requiring any pain medication. He is stable for discharge today. Time spent discussing smoking cessation with patient: 3 to 10 minutes Status at Discharge Functional status at discharge: independent ambulation Overall status at discharge: patient is progressing back to baseline Time Spent with Patient Time attestation: Total time spent providing and/or coordinating discharge services: Time spent: Less than 30 minutes Exam Const: General: comfortable and no acute distress Orientation/consciousness: patient oriented x3 Resp: Effort & Inspection: normal respiratory effort Auscultation: clear to auscultation bilaterally Cardio: Rate: regular rate Rhythm: regular rhythm GI: Inspection: non-distended GI Palp: Yes Soft to palpation, Yes Tenderness to palpation present (GI) (LLQ, improved), No Guarding due to palpation present (GI) and No Rebound tenderness present Auscultation: normal bowel sounds Skin: General skin exam: normal color Neuro: General: moves all extremities and no focal motor deficits Extrem: General: normal to inspection and no calf tenderness Psych: Mental Status: mental status grossly normal DS: Data Data Completed and Pending Labs on day of discharge: Labs from last 24 hours 02/16/22 02/16/22 05:23 05:23 WBC 11.1 H RBC 4.22 L Hgb 12.5 L Hct 38.8 L MCV 91.9 MCH 29.6 MCHC 32.2 RDW 13.3 Plt Count 215 MPV 8.8 Sodium 135 L Potassium 3.5 Chloride 107 Carbon Dioxide 25 Anion Gap 3 L BUN 8 L Creatinine 1.10 Estim Creat Clear Calc 88 Estimated GFR > 60 Glucose 108 Calcium 8.2 L Imaging Radiologist's impression: ITS Impressions Abdomen/Pelvis CT 02/14/22 18:01 IMPRESSION: Complicated acute sigmoid diverticulitis, with contained perforation. Results reported telephonically to
--- NOTE | 2022-02-16 13:35 | PCNSR ---
On 02/16/22, the student,Audrey Smart, provided care and completed [facility] documentation on this patient. I have reviewed the student's documentation and agree with the findings.
== END 2022-02-16 13:15 | disposition home or self-care (01) | DRG 392 ==
LOC: ANHED 17:00 → ANH3MED 21:15
PROVIDERS: Emergency Medicine; Admitting Provider Surgery; Emergency Provider Nurse Practitioner Family; PCP Internal Medicine; Visit Provider Nurse Practitioner Family
DX: K57.20 Diverticulitis of large intestine with perforation and abscess without bleeding (principal); M17.11 Unilateral primary osteoarthritis, right knee; E66.9 Obesity, unspecified; F17.210 Nicotine dependence, cigarettes, uncomplicated
CPT/HCPCS: 36415; 74019; 74177; 80048; 80053; 81001; 83605; 83690; 83735; 85025; 85027; 96365; 99285; A9270; J0131; J1650; J2543; J7030; Q9967

== ENCOUNTER 2022-04-26 00:28 | Day surgery (SDC) | payer OTHER, SELFPAY ==
[2022-04-11 13:54] VITALS: BMI 33.5
[2022-04-26 09:00] VITALS: BP 141/85; PULSE 55; RESP 18; TEMP 36.1; O2SAT 100; BMI 33.8
[2022-04-26] MEDS: LACTATED RINGERS 1,000 ML 150 ML IV CONT (09:17)
--- NOTE | 2022-04-26 09:32 | P.PNAN_ITS ---
Anes - Initial Pre Proc Eval Procedure: Operation Date: 04/26/22 10:15 Proposed Procedures p Colonoscopy - Álvaro Jackson MD Date/Time: 04/26/22 09:32 Surgeon: Álvaro Jackson MD Pre Op Diagnosis: diverticulitis Patient Data Age: 52 Gender: M Height: 1.8 m Weight: 110.2 kg Last Vital Signs Temp 96.9 F L 04/26/22 09:00 Pulse 55 L 04/26/22 09:00 Resp 18 04/26/22 09:00 BP 141/85 H 04/26/22 09:00 Pulse Ox 100 04/26/22 09:00 O2 Del Method Room Air 04/26/22 09:00 Allergies Allergy/AdvReac Type Severity Reaction Status Date / Time No Known Allergies Allergy Unknown Verified 04/26/22 09:05 Home Medications Medication Instructions Recorded Confirmed Type No Home Medications 07/19/21 04/26/22 History Patient hx anesthesia problems: none Family hx anesthesia problems: none Results Review: All pre-operative results and documents have been reviewed as part of the pre- operative evaluation. [facility] Past Medical History Medical History Obesity Osteoarthritis of right knee Tear of medial meniscus of right knee, current Tobacco abuse Surgical History Surgical History History of arthroscopy of right knee July 04, 2021 Partial medial meniscectomy Family History Family History Mother Family history of malignant neoplasm IBS (irritable bowel syndrome) Father Family history of gout Family history of cardiovascular disease Diabetes mellitus Family history of arthritis Acute myocardial infarction Sibling Family history of malignant neoplasm Social History Social History Smoking packs per day: 0.5 Smoking cigarettes per day: 10.0 Years smoked: 35 Smoking pack-years: 17.50 Smoking status: Current every day smoker Tobacco type: cigarettes Alcohol intake: current Drinks per week: 2 Alcohol use details: BEERS OR COCKTAIL Substance use: current Substance use type: marijuana Other substance usage details: DAILY Living arrangements: with family 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 Informed Consent: The patient's anesthetic plan and its attendant risks and benefits were discussed with the patient/family/POA. Questions were solicited and answers provided to the satisfaction of the patient/family/POA.
--- NOTE | 2022-04-26 09:50 | PM.HPGS ---
History of Present Illness History of Present Illness Consent: Risks, benefits, and alternatives have been discussed and questions answered. Patient agrees to proceed with procedure. Chief complaint: diverticulitis Narrative: Finn Valverde is a 52 year old male with sigmoid diverticulitis ~ 6 weeks ago treated medically, here for first colonoscopy. Now asymptomatic Review of Systems Constitutional: Constitutional: Denies headache(s) and Denies weakness Eyes: Eyes: Denies blurry vision ENT: Reports Normal hearing present, Denies headache(s) and Denies neck pain Cardiovascular: Cardiovascular: Denies chest pain and Denies dyspnea Respiratory: Respiratory: Denies dyspnea Gastrointestinal: Gastrointestinal: Reports no additional gastrointestinal complaints Genitourinary: Genitourinary: Denies dysuria Musculoskeletal: Musculoskeletal: Denies neck pain Integumentary/Breasts: Skin/Breast: Denies dry skin Neurologic: Reports Normal hearing present, Denies headache(s) and Denies weakness Psychiatric: Psychiatric: Denies anxiety Endocrine: Endocrine: Denies change in body appearance Hematologic/Lymphatic: Hematologic/Lymphatic: Denies easy bleeding Allergic/Immunologic: Allergic/Immunologic: Denies urticaria PMFSH Past Medical History Medical History Obesity Osteoarthritis of right knee Tear of medial meniscus of right knee, current Tobacco abuse Surgical History Surgical History History of arthroscopy of right knee July 04, 2021 Partial medial meniscectomy Family History Family History Mother Family history of malignant neoplasm IBS (irritable bowel syndrome) Father Family history of gout Family history of cardiovascular disease Diabetes mellitus Family history of arthritis Acute myocardial infarction Sibling Family history of malignant neoplasm Social History Social History Smoking packs per day: 0.5 Smoking cigarettes per day: 10.0 Years smoked: 35 Smoking pack-years: 17.50 Smoking status: Current every day smoker Tobacco type: cigarettes Alcohol intake: current Drinks per week: 2 Alcohol use details: BEERS OR COCKTAIL Substance use: current Substance use type: marijuana Other substance usage details: DAILY Living arrangements: with family 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 Gender identity (if verbalized by the patient): Male Spiritual care concerns: No Agree to blood products: Yes Meds Home Medications and Allergies Home Medications Medication Instructions Recorded Confirmed Type No Home Medications 07/19/21 04/26/22 History Allergies Allergy/AdvReac Type Severity Reaction Status Date / Time No Known Allergies Allergy Unknown Verified 04/26/22 09:05 Vital Signs Vital Signs - 24 hr 04/26/22 09:00 Temperature 96.9 F L Pulse Rate 55 L Respiratory Rate 18 Blood Pressure 141/85 H Pulse Oximetry 100 Oxygen Delivery Room Air Exam Const: General: comfortable and no acute distress HENMT: General nose exam: Normal nares present Eyes: General: appearance normal, both eyes and all related structures Neck: Neck: no JVD Resp: Auscultation: clear to auscultation bilaterally Cardio: Rate: regular rate Rhythm: regular rhythm GI: Inspection: non-distended GI Palp: Yes Soft to palpation Skin: General skin exam: normal color Neuro: General: gait normal Speech: normal speech Extrem: General: normal to inspection Psych: Mental Status: mental status grossly normal Assessment and Plan Assessment and plan (1) Diverticulitis of large intestine with perforation and abscess without bleeding: Code(s): K57.20 - Diverticulitis of large intestine with perforation and absce
[2022-04-26 10:22] VITALS: BP 111/62; PULSE 67; RESP 18; O2SAT 99
[2022-04-26 10:32] VITALS: BP 132/86; PULSE 67; RESP 18; O2SAT 100
[2022-04-26 10:42] VITALS: BP 120/84; PULSE 66; RESP 18; O2SAT 100
== END 2022-04-26 10:50 | disposition home or self-care (01) ==
PROVIDERS: PCP Internal Medicine; Visit Provider Internal Medicine Gastroenterology
PROC: 0DJD8ZZ Inspection of Lower Intestinal Tract, Via Natural or Artificial Opening Endoscopic (ICD-10-PCS; CPT 45378; principal; 2022-04-26 10:15)
DX: Z12.11 Encounter for screening for malignant neoplasm of colon (principal); D12.4 Benign neoplasm of descending colon; K63.5 Polyp of colon; K57.30 Diverticulosis of large intestine without perforation or abscess without bleeding; K64.8 Other hemorrhoids; Z87.19 Personal history of other diseases of the digestive system; F17.210 Nicotine dependence, cigarettes, uncomplicated; E66.9 Obesity, unspecified; Z68.33 Body mass index [BMI] 33.0-33.9, adult
CPT/HCPCS: 45385; 88305; J2704; J7120

== ENCOUNTER 2023-04-25 14:41 | Outpatient (CLI) | payer OTHER, SELFPAY ==
--- NOTE | ~2023-04-25 | CT_ITS ---
CT of the Abdomen and Pelvis: Indication: Diverticulitis Technique: 2.5 mm axial scans were obtained through the abdomen and pelvis following intravenous adm inistration of 100 cc of Omnipaque 350. Dose reduction technique was used on this scan by utilizing a utomated exposure control and iterative reconstruction technique. The dose-length product (DLP) was 1 376.12 mGy-cm. COMPARISON: 02/14/2022 Findings: Scans through the lung bases demonstrates stable 5 mm right lower lobe pulmonary nodule. The liver, spleen, pancreas, adrenals and kidneys are within normal limits. Cholecystectomy clips are present. No evidence of aortic aneurysm. No lymphadenopathy. No bowel obstruction or bowel wall thickening. There are occasional sigmoid diverticula, without dist inct evidence for acute inflammatory process. Normal appendix. Images through the pelvis were performed. Urinary bladder unremarkable. Fat-containing left inguinal hernia present. No pelvic mass evident. No ascites. Impression: No evidence for acute diverticulitis. Occasional sigmoid diverticula noted. Fat-containing left inguinal hernia. Stable 5 mm right lower lobe pulmonary nodule. Reviewed, dictated and finalized at location . Impression: No evidence for acute diverticulitis. Occasional sigmoid diverticula noted. Fat-containing left inguinal hernia. Stable 5 mm right lower lobe pulmonary nodule.
== END 2023-04-25 14:42 | disposition home or self-care (01) ==
LOC: ANHIMG 14:47
PROVIDERS: Visit Provider Surgery
DX: K57.92 Diverticulitis of intestine, part unspecified, without perforation or abscess without bleeding (principal); K40.90 Unilateral inguinal hernia, without obstruction or gangrene, not specified as recurrent; R91.1 Solitary pulmonary nodule; K57.30 Diverticulosis of large intestine without perforation or abscess without bleeding
CPT/HCPCS: 74177; Q9967

== ENCOUNTER 2024-09-02 14:03 | Outpatient (CLI) | payer OTHER, SELFPAY ==
--- NOTE | ~2024-09-02 | XR_ITS ---
Right elbow Technique: AP and lateral views were obtained. Clinical History: Pain Findings: No acute fracture or dislocation is seen. Osseous alignment is anatomic. Joint spaces are p reserved. There is no displacement of the fat pads, and soft tissues are unremarkable. Impression: Unremarkable radiographs. Reviewed, dictated and finalized at location . [facility] HOST Impression: Unremarkable radiographs.
--- OUTSIDE RECORDS SUMMARY | 2024-09-02 14:21 | XMS_ITS | Referral Summary ---
Author Organization [facility] Address [address] [place] [address] Care Team Providers Care Traveling Passenger Agent Name Role Phone Unavailable Primary Care Provider Unavailabl e Source Comments [facility],non-owned Affiliates and Associated Physician Practices is amultiple site organization consisting of ambulatory clinics and hospital sitesin [place], [place], [place] and [place]. This disclosure is being madepursuant to the Care Everywhere program and may not contain all information available regarding this patient. Last updated 18.[facility] Allergies No known active allergies Medications * Be aware that medications may not be up to date on this document. Alwaysverify current medications with the patient. Medication Sig Dispensed Refills Start Date End Date Status meclizine (Antivert) 25 MG tablet Take 1 (one) tablet by mouth 3 times daily 90 tablet 02/13/2024 Active atorvastatin (Lipitor) 80 MG tablet Take 1 (one) tablet by mouth at bedtime 90 tablet 3 02/13/2024 Active Active Problems Problem Noted Date Diagnosed Date Vertigo 02/12/2024 Social History Tobacco Use Types Packs/Day Years Used Date Smoking Tobacco: Never Smokeless Tobacco: Never Tobacco Cessation:Counseling Given: No Overall Financial Resource Strain (CARDIA) Answe r Date Recorded How hard is it for you to pa y for the very basics like food, housing, medical care, and heating? Not hard at all 02/13/2024 [facility] - Occupational Stress Questionnaire Answer Date Recorded Do you feel stress - tense, restless, nervous, or anxious, or unable to sleep at night because your mind is troubled all the time - these days? Not at all 02/13/2024 Hunger Vital Sign Answer Date Recorded Within the past 12 months, y ou worried that your food would run out before you got the money to buy more. Never true 02/13/20 24 Within the past 12 months, t he food you bought just didn't last and you didn't have money to get more. Never true 02/13/2024 PRAPARE - Transportation Answer Date Re corded In the past 12 months, has l ack of transportation kept you from medical appointments or from getting medications? No 01/27 In the past 12 months, has l ack of transportation kept you from meetings, work, or from getting things needed for daily living? No 02/13/2024 Housing Stability Vital Sign Answer To e Recorded In the last 12 months, was t here a time when you were not able to pay the mortgage or rent on time? No 02/13/2024 In the last 12 months, how many places have you lived? 1 02/13/2024 In the last 12 months, was t here a time when you did not have a steady place to sleep or slept in a fdc (including now)? No 02/13/2024 Sex and Gender Information Value Date Recorded Sex Assigned at Not on file Gender Identity Not on file Sexual Orientation Not on file Last Filed Vital Signs Vital Sign Reading Time Taken Comments Blood Pressure 119/80 02/13/2024 11:19 AM CDT Pulse 50 02/13/2024 11:19 AM CDT Temperature 36.8 ??C (98.2 ??F) 02/13/2024 11:19 AM C DT Respiratory Rate 18 02/13/2024 11:19 AM CDT Oxygen Saturation 97% 02/13/2024 11:19 AM CDT Inhaled Oxygen Concentration - - Weight 115.7 kg (255 lb) 02/13/2024 11:19 AM CDT Height 180.4 cm (5' 11.02 ) 02/13/2024 11:19 AM CDT Body Mass Index 35.54 02/13/2024 11:19 AM CDT Functional Status Functional Status Response Date of Assess ment Is person deaf or have serious hearing difficult y? No 02/13/2024 Is person blind or have serious difficulty seein g? No 02/13/2024 Does person have serious dif ficulty walking/climbing stairs? No 02/13/2024 Does person have difficulty dressing/bathing? No 02/13/2024 Does person have difficulty doing errands alone? No 02/13/2024 Cognitive Status Response Date of Assessm ent Does person have difficulty concentrating/remembering/making decisions? No 02/13/2024 Plan of Treatment Not on file Advance Directives * Full Code (Latest Code Status on File) Date Activated Date Inactivated Comments 02/12/2024 3:50 PM 02/13/2024 5:26 PM
--- OUTSIDE RECORDS SUMMARY | 2024-09-02 14:21 | XMS_ITS | Encounter Summary ---
Author Organization [facility] [place] [address] [place] [address] Care Team Providers Care Guest Service Supervisor Name Role Phone Unavailable Primary Care Provider Unavailabl e Prior Encounters Date Type Department Care Team Description 08/18/2019 Converted CPS Chart Documents [facility] [address] [place] [phone] <No scans attached> 08/18/2019 Converted 13x Documents [facility] [address] [place] [phone] <No scans attached> Plan of Treatment Not on file Procedures Procedure Name Priority Date/Time Associated Diagnosis Comments PERIO CONSULT Routine 06/28/2020 2:00 AM ELECTRO MECHANICAL DESIGNER ADJUST PARTIAL DENTURE - MAXILLARY Routine 06/01/2020 2:00 AM ELECTRO MECHANICAL DESIGNER ORAL SURG CONSULT Routine 05/28/2020 2:0 0 AM CDT THERAPEUTIC PARENTERAL DRUGS, TWO OR MORE ADMINISTRATIONS, DIFFERENT MEDICATIONS Routine 05/28/2020 2:00 AM CDT DEEP SEDATION/GENERAL ANESTHESIA ? FIRST 15 MINUTES Routine 05/28/2020 2:00 AM CDT 10 EXTRACTION, ERUPTED TOOTH OR EXPOSED ROOT (ELEVATION AND/OR FORCEPS REMOVAL) Routine 05/28/2020 2:00 AM CDT 9 EXTRACTION, ERUPTED TOOTH OR EXPOSED ROOT (ELEVATION AND/OR FORCEPS REMOVAL) Routine 05/28/2020 2:00 AM CDT 8 EXTRACTION, ERUPTED TOOTH OR EXPOSED ROOT (ELEVATION AND/OR FORCEPS REMOVAL) Routine 05/28/2020 2:00 AM CDT 7 EXTRACTION, ERUPTED TOOTH OR EXPOSED ROOT (ELEVATION AND/OR FORCEPS REMOVAL) Routine 05/28/2020 2:00 AM CDT OFFICE VISIT FOR OBSERVATION (DURING REGULARLY SCHEDULED HOURS) - NO OTHER SERVICES PERFORMED Routine 04/20/2020 2:00 AM CDT 7,8,9,10 PUD FLEXIBLE BASE PREMIUM Routine 03/22/2020 2:00 AM CDT 7,8,9,10 PUD FLEXIBLE BASE PREMIUM Routine 03/22/2020 2:00 AM CDT 9 LIMITED ORAL EVALUATION - PROBLEM FOCUSED Routine 03/22/2020 2:00 AM CDT PANORAMIC RADIOGRAPHIC IMAGE Routine 03/22/2020 2:00 AM CDT ADDITIONAL X-RAY Routine 03/22/2020 2:00 AM CDT SINGLE X-RAY Routine 03/22/2020 2:00 AM CDT MISSED APPOINTMENT Routine 01/22/2018 2: 00 AM CDT CANCELLED APPOINTMENT Routine 10/23/2017 2:00 AM CDT UR PERIODONTAL SCALING AND ROOT PLANING - FOUR OR MORE TEETH PER QUADRANT Routine 07/24/2017 2:00 AM ELECTRO MECHANICAL DESIGNER ORAL HYGIENE INSTRUCTIONS Routine 2016 2:00 AM ELECTRO MECHANICAL DESIGNER UR ANTIBACT IRR/QUAD Routine 07/24/2017 2:00 AM ELECTRO MECHANICAL DESIGNER UL PERIODONTAL SCALING AND ROOT PLANING - FOUR OR MORE TEETH PER QUADRANT Routine 05/22/2017 2:00 AM CDT LL PERIODONTAL SCALING AND ROOT PLANING - FOUR OR MORE TEETH PER QUADRANT Routine 05/22/2017 2:00 AM CDT ORAL HYGIENE INSTRUCTIONS Routine 2016 2:00 AM CDT UL ANTIBACT IRR/QUAD Routine 05/22/2017 2:00 AM CDT LL ANTIBACT IRR/QUAD Routine 05/22/2017 2:00 AM CDT CANCELLED APPOINTMENT Routine 04/24/2017 2:00 AM CDT CANCELLED APPOINTMENT Routine 04/20/2017 2:00 AM CDT 31 EXTRACTION, ERUPTED TOOTH REQUIRING REMOVAL OF BONE AND/OR SECTIONING OF TOOTH Routine 04/14/2017 2:00 AM CDT 14 O AMALGAM 1 SURFACE Routine 7 2:00 AM CDT 3 O AMALGAM 1 SURFACE Routine 04/10/2017 2:00 AM CDT LR PERIODONTAL SCALING AND ROOT PLANING - FOUR OR MORE TEETH PER QUADRANT Routine 04/10/2017 2:00 AM CDT ORAL HYGIENE INSTRUCTIONS Routine 2016 2:00 AM CDT LR ANTIBACT IRR/QUAD Routine 04/10/2017 2:00 AM CDT 31 LIMITED ORAL EVALUATION - PROBLEM FOCUSED Routine 04/10/2017 2:00 AM CDT 18 LIMITED ORAL EVALUATION - PROBLEM FOCUSED Routine 04/10/2017 2:00 AM CDT 14 LIMITED ORAL EVALUATION - PROBLEM FOCUSED Routine 04/10/2017 2:00 AM CDT 2 LIMITED ORAL EVALUATION - PROBLEM FOCUSED Routine 04/10/2017 2:00 AM CDT PANORAMIC RADIOGRAPHIC IMAGE Routine 04/10/2017 2:00 AM CDT INTRAORAL - COMPREHENSIVE SERIES OF RADIOGRAPHIC IMAGES Routine 04/10/2017 2:00 AM CDT INTRAORAL PHOTO Routine 04/10/2017 2:00 AM CDT INTRAORAL PHOTO Routine 04/10/2017 2:00 AM CDT INTRAORAL PHOTO Routine 04/10/2017 2:00 AM CDT INTRAORAL PHOTO Routine 04/10/2017 2:00 AM CDT Visit Diagnoses Not on file
--- OUTSIDE RECORDS SUMMARY | 2024-09-02 14:21 | XMS_ITS | Clinical Summary ---
Author Organization [facility] [place] [address] [place] [address] Care Team Providers Care Speech Lang Path Therapist Name Role Phone Unavailable Primary Care Provider Unavailabl e Social History Tobacco Use Types Packs/Day Years Used Date Smoking Tobacco: Never Assessed Sex and Gender Information Value Date Recorded Sex Assigned at Not on file Legal Sex Male 1:18 AM PST Gender Identity Not on file Sexual Orientation Not on file Plan of Treatment Not on file
--- OUTSIDE RECORDS SUMMARY | 2024-09-02 14:21 | XMS_ITS | Referral Summary ---
Author Organization [facility] [place] [address] [place] [address] Care Team Providers Care Communications Consultant Name Role Phone Unavailable Primary Care Provider [...]
--- OUTSIDE RECORDS SUMMARY | 2024-09-02 14:21 | XMS_ITS | CCD ---
Author Organization [facility] [place] [address] [place] [address] Care Team Providers Care Facilities Flight Check Pilot Name Role Phone Unavailable Primary Care Provider [...]
--- OUTSIDE RECORDS SUMMARY | 2024-09-02 14:21 | XMS_ITS ---
Author Organization [facility] Address [address] [place] [address] Care Team Providers Care Key Bed Installer Name Role Phone Unavailable Unavailable Unavailable Surgery Details Not on file Complications Check Surgery Details section. Procedure Estimated Blood Loss Check Surgery Details section. Procedure Findings Check Surgery Details section. Procedure Specimens Taken Check Surgery Details section.
--- OUTSIDE RECORDS SUMMARY | 2024-09-02 14:21 | XMS_ITS | Patient Health Summary ---
Author Organization [facility] Address [address] [place] [address] Care Team Providers Care Belt Brander Name Role Phone Unavailable Primary Care Provider Unavailabl e Note from [facility],non-owned Affiliates and Associated Physician Practices is amultiple site organization consisting of ambulatory clinics and hospital sitesin [place], [place], [place] and [place]. This disclosure is being madepursuant to the Care Everywhere program and may not contain all information available regarding this patient. Last updated 18.[facility] Allergies No known active allergies Medications * Be aware that medications may not be up to date on this document. Alwaysverify current medications with the patient. * meclizine (Antivert) 25 MG tablet(Started 02/13/2024) Take 1 (one) tablet by mouth 3 times daily * atorvastatin (Lipitor) 80 MG tablet(Started 02/13/2024) Take 1 (one) tablet by mouth at bedtime 3 refills by 02/12/2025 Active Problems Problem Noted Date Diagnosed Date Vertigo 02/12/2024 Social History Tobacco Use Types Packs/Day Years Used Date Smoking Tobacco: Never Smokeless Tobacco: Never Tobacco Cessation:Counseling Given: No Overall Financial Resource Strain (CARDIA) Answe r Date Recorded How hard is it for you to pa y for the very basics like food, housing, medical care, and heating? Not hard at all 02/13/2024 [facility] - Occupational Stress [...] place to sleep or slept in a longterm (including now)? No 02/13/2024 Sex and Gender [...] Mass Index 35.54 02/13/2024 11:19 AM CDT Procedures * CARDIAC RHYTHM STRIP ORDER(Performed 02/14/2024) * ECHO COMPLETE W CONTRAST W BUBBLE STUDY(Performed 02/13/2024) Performed for Vertigo * MRI BRAIN WO CONTRAST(Performed 02/13/2024) Performed for Vertigo * GLUCOSE - POINT OF CARE(Performed 02/13/2024) * LIPID PROFILE(Performed 02/13/2024) Performed for Vertigo * BASIC METABOLIC PANEL (CALCIUM TOTAL)(Performed 02/13/2024) Performed for Vertigo * GLUCOSE - POINT OF CARE(Performed 02/12/2024) * TROPONIN-I HIGH SENSITIVE REFLEX 1HOUR(Performed 02/12/2024) Performed for Vertigo * TROPONIN-I HIGH SENSITIVE BASELINE + 1HR(Performed 02/12/2024) Performed for Vertigo * GLUCOSE - POINT OF CARE(Performed 02/12/2024) * TROPONIN-I HIGH SENSITIVE REFLEX 1HOUR(Performed 02/12/2024) * TYPE + SCREEN PANEL(Performed 02/12/2024) * HEMOGLOBIN A1C(Performed 02/12/2024) Performed for Vertigo * TROPONIN-I HIGH SENSITIVE BASELINE + 1HR(Performed 02/12/2024) * PTT(Performed 02/12/2024) * PT-INR(Performed 02/12/2024) * COMPREHENSIVE METABOLIC PANEL(Performed 02/12/2024) * CBC W AUTO DIFFERENTIAL(Performed 02/12/2024) * CT ANGIO BRAIN NECK STROKE(Performed 02/12/2024) Performed for Dizziness * EKG 12-LEAD(Performed 02/12/2024) Performed for Dizziness * CREATININE - POCT INTERFACED(Performed 02/12/2024) * CT BRAIN STROKE(Performed 02/12/2024) Performed for Dizziness Results * CARDIAC RHYTHM STRIP ORDER (02/14/2024 7:47 PM CDT) Narrative 02/14/2024 7:47 PM CDT Ordered by an unspecified provider. Scanned Document CARDIAC SERVICES ORD ERABLES * ECHO COMPLETE W CONTRAST W BUBBLE STUDY (02/13/2024 3:18 PM CDT) IVSd 2D 1.115 cm SSM CV FUJ I PACS LVIDd 4.851 cm SSM CV FUJ I PACS LVIDs 3.174 cm SSM CV FUJ I PACS LVOT diam 2.111 cm SSM CV FUJ I PACS LVPWd 1.739 cm SSM CV FUJ I PACS LVOT pk deep 116.9 cm/s SSM CV F UJI PACS LVOT VTI 24.248 cm SSM CV FUJ I PACS RVOT pk deep 81.652 cm/s SSM CV F UJI PACS LA size 3.813 cm SSM CV [facility] I PACS AV mn grad 5.821 mmHg SSM CV FU JI PACS AV pk deep 162.155 cm/s SSM CV FUJ I PACS AV VTI 35.192 cm SSM CV [facility] I PACS MV A pk deep 72.658 cm/s SSM CV F UJI PACS MV E pk deep 82.61 cm/s SSM CV F UJI PACS MV E' lateral deep 15.746 cm/s [facility] PV pk deep 106.397 cm/s S[facility] CV [facility] I PACS TAPSE 2.828 cm SSM CV [facility] I PACS TR pk deep 234.275 cm/s SSM CV [facility] I PACS Ascending aorta 3.219 cm [facility] Diam Expiration 2.124 cm [facility] LV biplane EF 69.662 % SSM CV FUJI PACS LV A2C EF 75.503 % SSM CV FUJ I PACS LV A4C EF 65.167 % SSM CV FUJ I PACS LV EDV A2C 102.469 ml SSM CV FU JI PACS LV EDV A4C 111.715 ml SSM CV FU JI PACS LV ESV A2C 25.102 ml SSM CV FU JI PACS LV ESV A4C 38.914 ml SSM CV FU JI PACS RA area 19.271 cm? ? ? SSM CV FUJI PACS Anatomical Region Laterality Modality Ultrasound 02/13/2024 1:20 PM CDT Narrative 02/18/2024 12:21 PM CDT Summary ??* The left ventricle is normal in size. ??* Left ventricular systolic function is normal with an estimated ejection fraction of 65-70% by visual estimate. ??* There is normal mass and geometry of the left ventricle. ??* Left ventricular segmental wall motion is normal. ??* The left ventricular diastolic function is consistent with grade I diastolic dysfunction. ??* The right ventricle is normal in size. ??* Right ventricular systolic function is normal. ??* The left atrium is normal in size. ??* The right atrium is normal in size. ??* Agitated saline contrast study at rest and with Valsalva is negative for a shunt. ??* Sensitivity diminished due to poor visualization. ??* There is trace mitral valve regurgitation. ??* There is trace tricuspid valve regurgitation. ??* The pulmonary artery systolic pressure is normal, 25 mmHg. Patient Info Name: ? Finn ?? Abram Age: ? 53 years : ? 1970 Gender: ? Male Accession #: ? [id number] Ht: ? 71 in Wt: ? 255 lb BSA: ? 2.45 m2 HR: ? 54 bpm BP: ? 131 / ? 81 mmHg Exam Date: ? 02/13/2024 1:20 PM Patient Status: ? OPO Study Site: ? [facility] Primary Location: ? [facility] EStudy Info Technical Quality: ? Technically Difficult Exam Type: ? ECHO COMPLETE W CONTRAST W BUBBLE STUDY Indications ?R42 - Vertigo Procedure(s) ??* A complete 2D, color Doppler, spectral Doppler, and M-Mode transthoracic echocardiogram was performed. Contrast/Agitated Saline Contrast / Saline: ? Definity Amount: ? --- ml Contrast / Saline: ? Agitated Saline Amount: ? --- ml Reason for Technically Difficult ??Study: ? poor echocardiographic windows Staff Referring Physician: ? Shabbir Lan Ordering Provider: ? Shabbir Lan Attending Physician: ? Shabbir Lan Thermo Processor: ? Ryan Jorge Velasco Left Ventricle ??The left ventricle is normal in size. Left ventricular systolic function is normal with an estimated ejection fraction of 65-70% by visual estimate. There is normal mass and geometry of the left ventricle. Left ventricular segmental wall motion is normal. The left ventricular diastolic function is consistent with grade I diastolic dysfunction. Right Ventricle ??The right ventricle is normal in size. Right ventricular systolic function is normal. Left Atrium ??The left atrium is normal in size. Right Atrium ??The right atrium is normal in size. Atrial Septum ??Agitated saline contrast study at rest and with Valsalva is negative for a shunt. Sensitivity diminished due to poor visualization. Aortic Valve ??The aortic valve is trileaflet. There is no aortic valve stenosis. There is no aortic valve regurgitation. Pulmonic Valve ??The pulmonic valve is normal. There is no pulmonic valve stenosis. There is no pulmonic regurgitation. Mitral Valve ??The mitral valve is normal. There is no mitral valve stenosis. There is trace mitral valve regurgitation. Tricuspid Valve ??The tricuspid valve is normal. There is trace tricuspid valve regurgitation. The pulmonary artery systolic pressure is normal, 25 mmHg. Inferior Vena Cava ??The inferior vena cava is normal in size (< 2.1 cm). There is > 50% collapse of the IVC upon inspiration with an estimated right atrial pressure of 3 mmHg. Pericardium/Pleural ??There is no pericardial effusion. Aorta ??The aortic root at the sinus of Valsalva is normal in size. The ascending aorta is normal in size. Measurements Left Ventricular Outflow Tract Name ? Value ?Normal LVOT 2D LVOT Diameter ? 2.1 cm ? LVOT Area ?3.5 cm2 ? LVOT Doppler LVOT Peak Velocity ? 1.2 m/s ? LVOT Peak Gradient ?5 mmHg ? LVOT Mean Velocity ?84.95 cm/s ? LVOT Mean Gradient ?3 mmHg ? LVOT VTI ? 24.2 cm ? LVOT VTI/AV VTI Ratio ?0.7 ? LVOT Stroke Volume ? 85 ml ? LVOT Stroke Volume Index ?35 ml/m2 ? 35-58 LVOT CO ?4.6 l/min ? LVOT CI ? 1.9 l/min/m2 Pulmonic Valve Name ? Value ?Normal RVOT Doppler RVOT Peak Velocity ? 0.8 m/s ? RVOT Peak Gradient ?3 mmHg ? PV Doppler PV Peak Velocity ? 1.1 m/s ? PV Peak Gradient ?5 mmHg Mitral Valve Name ? Value ?Normal MV Doppler MV PHT ? 49 ms ? MV Area (PHT) ? 4.53 cm2 ? 4.00-5.00 MV Diastolic Function MV E Peak Velocity ? 0.8 m/sec ? MV A Peak Velocity ? 0.7 m/sec ? MV E/A ? 1.1 ? MV Decel Time (PW) ?168 ms ? MV Annular TDI MV Septal e' Velocity ? 9 cm/s ? >=8 MV E/e' (Septal) ?10 ? <=8 MV Lateral e' Velocity ? 16 cm/s ?>=10 MV E/e' (Lateral) ?5 ? <=8 MV e' Average ?12 cm/s ? MV E/e' (Average) ?7 Tricuspid Valve Name ? Value ?Normal TV Regurgitation Doppler TR Peak Velocity ? 2.3 m/s ? TR Peak Gradient ? 22 mmHg ? Estimated PAP/RSVP RA Pressure ? 3 mmHg ? <=5 PA Systolic Pressure ? 25 mmHg ? <35 RV Systolic Pressure ? 25 mmHg ? <36 TV Annular TDI TV Lateral Magali s' Velocity ? 13 cm/s ? 10-19 Aorta Name ? Value ?Normal Ascending Aorta Asc Ao Diameter ? 3.2 cm ? 2.2-3.8 Asc Ao Diameter Index ?1.3 cm/m2 ? 1.1-1.9 Venous Name ? Value ?Normal IVC/SVC IVC Diameter ?2.1 cm ? <=2.1 Aortic Valve Name ? Value ?Normal AV Doppler AV Peak Velocity ?1.62 m/s ? AV Peak Gradient ? 11 mmHg ? AV Mean Gradient ?6 mmHg ? AV VTI ? 35 cm ? AV Area (Cont Eq VTI) ? 2.41 cm2 ?>=2.00 AV Area (Cont Eq Deep) ? 2.52 cm2 ? AV DI (Deep) ? 0.72 ? AV Regurgitation 2D LVOT Area ? 3.50 cm2 Ventricles Name ? Value ?Normal LV Dimensions 2D/MM IVS Diastolic Thickness (2D) ?1.1 cm ? 0.6-1.0 LVID Diastole (2D) ?4.9 cm ? 4.2-5.8 LVPW Diastolic Thickness (2D) ?1.7 cm ? 0.6-1.0 LVID Systole (2D) ? 3.2 cm ? 2.5-4.0 LV Mass (2D Cubed) ? 286 g ?88-224 LV Mass Index (2D Cubed) ?117 g/m2 ?49-115 Relative Wall Thickness (2D) ?0.72 ?<=0.42 LV Fractional Shortening/Ejection Fraction 2D/MM LV Fractional Shortening (2D) ?30 % ? 25-43 LV EF (2D Teicholz) ? 64 % ? 52-72 LV Diastolic Volume (4C MOD) ?112 ml ? LV EF (4C MOD) ?65 % ? LV Diastolic Volume (2C MOD) ?102 ml ? LV EF (2C MOD) ?76 % ? LV Diastolic Volume (BP MOD) ?111 ml ?62-150 LV Diastolic Volume Index (BP MOD) ?45 ml/m2 ? 34-74 LV Systolic Volume (BP MOD) ?34 ml ? 21-61 LV Systolic Volume Index (BP MOD) ?14 ml/m2 ? - LV EF (BP MOD) ?70 % ? 52-72 LV Diastolic Length (4C) ?8.9 cm ? LV Systolic Length (4C) ? 7.6 cm ? LV Stroke Volume (4C MOD) ?73 ml ? RV Dimensions 2D/MM TAPSE ? 2.8 cm ? >=1.7 Atria Name ? Value ?Normal LA Dimensions LA Dimension (2D) ? 3.8 cm ? 3.0-4.1 LA Dimen Index (2D) ?1.6 cm/m2 ? RA Dimensions RA Area (4C) ?19 cm2 ?<=18 RA Area (4C) Index ?8 cm2/m2 Report Signatures Finalized by Berry ??Maria A on 02/18/2024 12:21 PM Procedure Note Berry Saha MD - 02/18/2024 Summary * The left ventricle is normal in size. * Left ventricular systolic function is normal with an estimatedejection fraction of 65-70% by visual estimate. * There is normal mass and geometry of the left ventricle. * Left ventricular segmental wall motion is normal. * The left ventricular diastolic function is consistent with grade I diastolic dysfunction. * The right ventricle is normal in size. * Right ventricular systolic function is normal. * The left atrium is normal in size. * The right atrium is normal in size. * Agitated saline contrast study at rest and with Valsalva is negativefor a shunt. * Sensitivity diminished due to poor visualization. * There is trace mitral valve regurgitation. * There is trace tricuspid valve regurgitation. * The pulmonary artery systolic pressure is normal, 25 mmHg. Patient Info Name: Finn Valverde Age: 53 years : 1970 Gender: Male Ht: 71 in Wt: 255 lb BSA: 2.45 m2 HR: 54 bpm BP: 131 / 81 mmHg Exam Date: 02/13/2024 1:20 PM Patient Status: OPO Study Site: [facility] Primary Location: [facility] EStudy Info Technical Quality: Technically Difficult Exam Type: ECHO COMPLETE W CONTRAST W BUBBLE STUDY Indications R42 - Vertigo Procedure(s) * A complete 2D, color Doppler, spectral Doppler, and M-Modetransthoracic echocardiogram was performed. Contrast/Agitated Saline Contrast / Saline: Definity Amount: --- ml Contrast / Saline: Agitated Saline Amount: --- ml Reason for Technically Difficult Study: poor echocardiographicwindows Staff Referring Physician: Shabbir Lan Ordering Provider: Shabbir Lan Attending Physician: Shabbir Lan Thermo Processor: Ryan Velasco Left Ventricle The left ventricle is normal in size. Left ventricular systolic functionis normal with an estimated ejection fraction of 65-70% by visual estimate.There is normal mass and geometry of the left ventricle. Left ventricularsegmental wall motion is normal. The left ventricular diastolic function isconsistent with grade I diastolic dysfunction. Right Ventricle The right ventricle is normal in size. Right ventricular systolicfunction is normal. Left Atrium The left atrium is normal in size. Right Atrium The right atrium is normal in size. Atrial Septum Agitated saline contrast study at rest and with Valsalva is negative fora shunt. Sensitivity diminished due to poor visualization. Aortic Valve The aortic valve is trileaflet. There is no aortic valve stenosis. Thereis no aortic valve regurgitation. Pulmonic Valve The pulmonic valve is normal. There is no pulmonic valve stenosis. Thereis no pulmonic regurgitation. Mitral Valve The mitral valve is normal. There is no mitral valve stenosis. Thereis trace mitral valve regurgitation. Tricuspid Valve The tricuspid valve is normal. There is trace tricuspid valveregurgitation. The pulmonary artery systolic pressure is normal, 25 mmHg. Inferior Vena Cava The inferior vena cava is normal in size (< 2.1 cm). There is > 50%collapse of the IVC upon inspiration with an estimated right atrial pressure of 3mmHg. Pericardium/Pleural There is no pericardial effusion. Aorta The aortic root at the sinus of Valsalva is normal in size. Theascending aorta is normal in size. Measurements Left Ventricular Outflow Tract Name Value Normal LVOT 2D LVOT Diameter 2.1 cm LVOT Area 3.5 cm2 LVOT Doppler LVOT Peak Velocity 1.2 m/s LVOT Peak Gradient 5 mmHg LVOT Mean Velocity 84.95 cm/s LVOT Mean Gradient 3 mmHg LVOT VTI 24.2 cm LVOT VTI/AV VTI Ratio 0.7 LVOT Stroke Volume 85 ml LVOT Stroke Volume Index 35 ml/m2 35-58 LVOT CO 4.6 l/min LVOT CI 1.9 l/min/m2 Pulmonic Valve Name Value Normal RVOT Doppler RVOT Peak Velocity 0.8 m/s RVOT Peak Gradient 3 mmHg PV Doppler PV Peak Velocity 1.1 m/s PV Peak Gradient 5 mmHg Mitral Valve Name Value Normal MV Doppler MV PHT 49 ms MV Area (PHT) 4.53 cm2 4.00-5.00 MV Diastolic Function MV E Peak Velocity 0.8 m/sec MV A Peak Velocity 0.7 m/sec MV E/A 1.1 MV Decel Time (PW) 168 ms MV Annular TDI MV Septal e' Velocity 9 cm/s >=8 MV E/e' (Septal) 10 <=8 MV Lateral e' Velocity 16 cm/s >=10 MV E/e' (Lateral) 5 <=8 MV e' Average 12 cm/s MV E/e' (Average) 7 Tricuspid Valve Name Value Normal TV Regurgitation Doppler TR Peak Velocity 2.3 m/s TR Peak Gradient 22 mmHg Estimated PAP/RSVP RA Pressure 3 mmHg <=5 PA Systolic Pressure 25 mmHg <35 RV Systolic Pressure 25 mmHg <36 TV Annular TDI TV Lateral Magali s' Velocity 13 cm/s 10-19 Aorta Name Value Normal Ascending Aorta Asc Ao Diameter 3.2 cm 2.2-3.8 Asc Ao Diameter Index 1.3 cm/m2 1.1-1.9 Venous Name Value Normal IVC/SVC IVC Diameter 2.1 cm <=2.1 Aortic Valve Name Value Normal AV Doppler AV Peak Velocity 1.62 m/s AV Peak Gradient 11 mmHg AV Mean Gradient 6 mmHg AV VTI 35 cm AV Area (Cont Eq VTI) 2.41 cm2 >=2.00 AV Area (Cont Eq Deep) 2.52 cm2 AV DI (Deep) 0.72 AV Regurgitation 2D LVOT Area 3.50 cm2 Ventricles Name Value Normal LV Dimensions 2D/MM IVS Diastolic Thickness (2D) 1.1 cm 0.6-1.0 LVID Diastole (2D) 4.9 cm 4.2-5.8 LVPW Diastolic Thickness (2D) 1.7 cm 0.6-1.0 LVID Systole (2D) 3.2 cm 2.5-4.0 LV Mass (2D Cubed) 286 g 88-224 LV Mass Index (2D Cubed) 117 g/m2 49-115 Relative Wall Thickness (2D) 0.72 <=0.42 LV Fractional Shortening/Ejection Fraction 2D/MM LV Fractional Shortening (2D) 30 % 25-43 LV EF (2D Teicholz) 64 % 52-72 LV Diastolic Volume (4C MOD) 112 ml LV EF (4C MOD) 65 % LV Diastolic Volume (2C MOD) 102 ml LV EF (2C MOD) 76 % LV Diastolic Volume (BP MOD) 111 ml 62-150 LV Diastolic Volume Index (BP MOD) 45 ml/m2 34-74 LV Systolic Volume (BP MOD) 34 ml 21-61 LV Systolic Volume Index (BP MOD) 14 ml/m2 11-31 LV EF (BP MOD) 70 % 52-72 LV Diastolic Length (4C) 8.9 cm LV Systolic Length (4C) 7.6 cm LV Stroke Volume (4C MOD) 73 ml RV Dimensions 2D/MM TAPSE 2.8 cm >=1.7 Atria Name Value Normal LA Dimensions LA Dimension (2D) 3.8 cm 3.0-4.1 LA Dimen Index (2D) 1.6 cm/m2 RA Dimensions RA Area (4C) 19 cm2 <=18 RA Area (4C) Index 8 cm2/m2 Report Signatures Finalized by Berry Saha on 02/18/2024 12:21 PM Shabbir Lan MD ECHO CUPID * MRI BRAIN WO CONTRAST (02/13/2024 2:40 PM CDT) Anatomical Region Laterality Modality Head Magnetic Resonan ce 02/13/2024 3:52 PM CDT Impressions 02/13/2024 3:55 PM CDT IMPRESSION: 1.No acute intracranial process. 2.Generalized cerebral atrophy and microvascular changes. > Interpreting Provider: Lionel Leahy MD on 02/13/2024 3:55 PM Narrative 02/13/2024 3:55 PM CDT EXAMINATION: Magnetic resonance imaging (MRI) of the brain without contrast HISTORY: R42: Dizziness and giddiness; TECHNIQUE: MRI of the brain was performed without contrast according to standard protocol. COMPARISON: Head CT and CTA brain and neck from 02/12/2024 FINDINGS: No evidence of acute or chronic hemorrhage is identified. No evidence of acute cerebral infarction is seen. There is mild cerebral volume loss with associated ex vacuo ventricular dilatation. No mass lesion, edema, mass effect, or midline shift is seen. Periventricular white matter FLAIR hyperintensities likely represent sequelae of chronic small vessel ischemic disease. The corpus callosum and sella appear normal. The posterior fossa, brainstem, and craniocervical junction appear normal. The orbits appear normal. The paranasal sinuses are clear. The mastoid air cells are clear. Normal flow voids are demonstrated in the carotid arteries and basilar artery. The calvarium and visualized cervical spine appear normal. Procedure Note Lionel Leahy MD - 02/13/2024 EXAMINATION: Magnetic resonance imaging (MRI) of the brain withoutcontrast HISTORY: R42: Dizziness and giddiness; TECHNIQUE: MRI of the brain was performed without contrast according to standard protocol. COMPARISON: Head CT and CTA brain and neck from 02/12/2024 FINDINGS: No evidence of acute or chronic hemorrhage is identified. No evidence of acute cerebral infarction is seen. There is mild cerebral volume losswith associated ex vacuo ventricular dilatation. No mass lesion, edema, mass effect, or midline shift is seen. Periventricular white matter FLAIR hyperintensities likely represent sequelae of chronic small vesselischemic disease. The corpus callosum and sella appear normal. The posteriorfossa, brainstem, and craniocervical junction appear normal. The orbits appear normal. The paranasal sinuses are clear. The mastoidair cells are clear. Normal flow voids are demonstrated in the carotidarteries and basilar artery. The calvarium and visualized cervical spine appear normal. IMPRESSION: 1.No acute intracranial process. 2.Generalized cerebral atrophy and microvascular changes. > Interpreting Provider: Lionel Leahy MD on 02/13/2024 3:55 PM Kiah Menendez MD MR ORDERABLES * GLUCOSE - POINT OF CARE (02/13/2024 8:08 AM CDT) Only the most recent of3 resultswithin the time period is included. Glucose WB/POC 105 70 - 106 mg/dL 02/13/2024 8:10 AM CDT [facility] Specimen Type Cap Fingerstick 2023 8:10 AM CDT [facility] Blood BLOOD SPECIMEN / Unknown 02/13/2024 8:08 AM CDT 02/13/2024 8:10 AM CDT Kiah Menendez MD LAB - POINT OF CARE ORDERABLES [facility] [id number] [place] [address] * (ABNORMAL) BASIC METABOLIC PANEL (CALCIUM TOTAL) (02/13/2024 5:47 AM CDT) Glucose 102 70 - 105 mg/dL 02/13/2024 6:16 AM CDT [facility] Sodium 140 136 - 145 mmol/L 02/13/2024 6:16 AM CDT [facility] Potassium 3.6 3.5 - 5.1 mmol/L 02/13/2024 6:16 AM CDT [facility] Chloride 111(H) 98 - 107 mmol/L 02/13/2024 6:16 AM CDT [facility] CO2 22 22 - 29 mmol/L 02/13/2024 6:16 AM CDT [facility] Calcium 8.1(L) 8.4 - 10.4 mg/dL 02/13/2024 6:16 AM CDT [facility] Anion Gap 7 6 - 16 mmol/L 02/13/2024 6:16 AM CDT [facility] BUN 13 7 - 26 mg/dL 02/13/2024 6:16 AM CDT [facility] Creatinine 0.87 0.72 - 1.25 mg/dL 02/13/2024 6:16 AM CDT [facility] eGFR by CKD-EPI >90 >=90 mL/min/1.7 3 m2 02/13/2024 6:16 AM CDT [facility] Blood BLOOD SPECIMEN / Unknown Venipuncture / Unknown 02/13/2024 5:47 AM CDT 02/13/2024 5:51 AM CDT Shabbir Lan MD LAB - CHEMISTRY [facility] Organization Address City/State/ZIP Co de Phone Number [facility] [id number] [place] [address] * (ABNORMAL) LIPID PROFILE (02/13/2024 5:47 AM CDT) Cholesterol 254(H) <200 mg/dL 02/13/2024 6:16 AM CDT [facility] Triglycerides 221(H) <150 mg/dL 02/13/2024 6:16 AM CDT [facility] HDL Cholesterol 44 >40 mg/dL 4 6:16 AM CDT [facility] LDL Calculated 166(H) <130 mg/dL 02/13/2024 6:16 AM CDT [facility] VLDL Calculated 44(H) <=30 mg/dL 4 6:16 AM CDT [facility] Chol HDL Ratio 5.8(H) <4.5 02/13/2024 6:16 AM CDT [facility] LDL/HDL Ratio 3.8 <5.0 02/13/2024 6:16 AM CDT [facility] Blood BLOOD SPECIMEN / Unknown Venipuncture / Unknown 02/13/2024 5:47 AM CDT 02/13/2024 5:51 AM CDT Shabbir Lan MD LAB - CHEMISTRY [facility] Performing Organization Address City/[facility]/ZIP Co de Phone Number [facility] [address] [place] [address] * TROPONIN-I HIGH SENSITIVE REFLEX 1HOUR (02/12/2024 5:54 PM CDT) Only the most recent of2 resultswithin the time period is included. Troponin I High Sensitive <3 <=35 ng/L 02/12/2024 6:39 PM CDT [facility] Delta Troponin I HS 02/12/2024 6:39 PM CDT [facility] Comment:Result exceeds linea rity range. A delta value is unable to be calculated. Blood BLOOD SPECIMEN / Unknown Venipuncture / Unknown 02/12/2024 5:54 PM CDT 02/12/2024 6:06 PM CDT Shabbir Lan MD LAB - CHEMISTRY [facility] Performing Organization Address [facility] Co de Phone Number [facility] [address] [place] [id number] * TROPONIN-I HIGH SENSITIVE BASELINE + 1HR (02/12/2024 4:45 PM CDT) Only the most recent of2 resultswithin the time period is included. Pathologist [facility] Troponin I High Sensitive <3 <=35 ng/L 02/12/2024 5:37 PM CDT [facility] Blood BLOOD SPECIMEN / Unknown Venipuncture / Unknown 02/12/2024 4:45 PM CDT 02/12/2024 5:11 PM CDT Shabbir Lan MD LAB - CHEMISTRY [facility] Performing Organization Address [facility]/ZIP Co de Phone Number [facility] [address] [place] [address] * HEMOGLOBIN A1C (02/12/2024 1:38 PM CDT) Hemoglobin A1c 5.4 <5.7 % 02/12/2024 4:04 PM CDT [facility] Estimated Average Glucose 108 mg/dL 02/12/2024 4:04 PM CDT [facility] [facility] Blood BLOOD SPECIMEN / Unknown Venipuncture / Unknown 02/12/2024 1:38 PM CDT 02/12/2024 1:38 PM CDT Narrative [facility] - 02/12/2024 4:04 PM CDT HbA1c Interpretation: Normal: < 5.7% Pre-diabetes: 5.7-6.4% Diabetes: Equal to or greater than 6.5% Test results diagnostic of diabetes should be repeated for confirmation. Treatment target values recommended by ADA and other clinical organizations should be used to evaluate metabolic control in patients. This test should not replace glucose testing for patients with Type 1 diabetes, pediatric patients, or women. ??Falsely low HbA1c results may be observed in patients with clinical conditions that shorten erythrocyte life span or decrease mean erythrocyte age such as the presence of unstable hemoglobin variants, elevated hemoglobin F level or other causes of hemolytic anemia. ??HbA1c may not accurately reflect glycemic control when clinical conditions that affect erythrocyte survival are present. ??Severe Iron deficiency anemia may yield falsely high results. ??Hemoglobin A1c assay should not be used to diagnose or monitor diabetes in patients with malignancy, recent blood transfusion, chronic kidney or liver disease. ?? This method may yield falsely low results when hemoglobin (HbF) exceeds 5% in the specimen. The Lanier Alinity assay for the measurement of HbA1c is a National Glycohemoglobin Standardization Program (NGSP) certified method. Shabbir Lan MD LAB - CHEMISTRY MARSHA HICKEY [facility] [address] [place] [address] * TYPE + SCREEN PANEL (02/12/2024 1:38 PM CDT) ABO Rh A NEG 02/12/2024 2:23 PM CDT [facility] Comment:No history; collect retype. Antibody Screen NEG 2:23 PM CDT [facility] Blood Bank BLOOD SPECIMEN / Unknown Venipuncture / Unknown 02/12/2024 1:38 PM CDT 02/12/2024 1:48 PM CDT Shabbir Lan MD LAB - BLOOD BANK ORD ERABLES Performing Organization Address City/[facility]/ZIP Co de Phone Number [facility] [address] [place], [place] [address]RUST [phone] * (ABNORMAL) PTT (02/12/2024 1:38 PM CDT) PTT 20.0(L) 23.0 - 38.4 sec 02/12/2024 1:58 PM CDT [facility] Blood BLOOD SPECIMEN / Unknown Venipuncture / Unknown 02/12/2024 1:38 PM CDT 02/12/2024 1:38 PM CDT Narrative [facility] - 02/12/2024 1:58 PM CDT Heparin Therapeutic Range for PTT: ??69.0 - 110.0 seconds. Shabbir Lan MD LAB - COAGULATION OR DERABLES Performing Organization Address City/[facility]/ZIP Co de Phone Number [facility] [address] [place] [address] * (ABNORMAL) PT-INR (02/12/2024 1:38 PM CDT) PT 11.8(L) 12.1 - 14.8 sec 02/12/2024 1:58 PM CDT [facility] INR 0.9 0.9 - 1.1 02/12/2024 1:58 PM CDT [facility] Blood BLOOD SPECIMEN / Unknown Venipuncture / Unknown 02/12/2024 1:38 PM CDT 02/12/2024 1:38 PM CDT Narrative [facility] - 02/12/2024 1:58 PM CDT Conventional Warfarin Anticoagulant Therapy: INR Reference Range: ??2.0-3.0 Intensive Warfarin Anticoagulant Therapy: INR Reference Range: ? 2.5-3.5 Shabbir Lan MD LAB - COAGULATION OR DERABLES [facility] [address] [place] [address] * CBC W AUTO DIFFERENTIAL (02/12/2024 1:38 PM CDT) WBC 7.9 4.0 - 10.7 x10E9/L 02/12/2024 1:43 PM CDT [facility] RBC Count 4.80 4.30 - 5.80 x10E12/L 02/12/2024 1:43 PM CDT [facility] Hemoglobin 14.2 13.3 - 17.5 g/dL 02/12/2024 1:43 PM CDT [facility] Hematocrit 42.2 38.7 - 51.1 % 02/12/2024 1:43 PM CDT [facility] MCV 87.9 80.0 - 98.0 fL 02/12/2024 1:43 PM CDT [facility] MCH 29.6 26.7 - 33.6 pg 02/12/2024 1:43 PM CDT [facility] MCHC 33.6 31.7 - 36.3 g/dL 02/12/2024 1:43 PM CDT [facility] RDW-CV 12.5 11.3 - 14.8 % 02/12/2024 1:43 PM CDT [facility] Platelet Count 269 150 - 420 x10E9/L 02/12/2024 1:43 PM CDT [facility] MPV 8.7 7.8 - 11.4 fL 02/12/2024 1:43 PM CDT [facility] Neutrophil % 56.9 41.0 - 74.0 % 02/12/2024 1:43 PM CDT [facility] Lymphocyte % 30.9 17.0 - 47.0 % 02/12/2024 1:43 PM CDT [facility] Monocyte % 8.8 3.0 - 11.0 % 02/12/2024 1:43 PM CDT [facility] Eosinophil % 2.0 0.0 - 7.0 % 02/12/2024 1:43 PM CDT [facility] Basophil % 1.1 0.0 - 1.6 % 02/12/2024 1:43 PM CDT [facility] Immature Granulocytes % 0.3 0.0 - 1.0 % 02/12/2024 1:43 PM CDT [facility] Neutrophil Absolute 4.50 1.60 - 7.50 x10E9/L 02/12/2024 1:43 PM CDT [facility] Lymphocyte Absolute 2.45 1.00 - 4.40 x10E9/L 02/12/2024 1:43 PM CDT [facility] Monocyte Absolute 0.70 0.15 - 1.00 x10E9/L 02/12/2024 1:43 PM CDT [facility] Eosinophil Absolute 0.16 0.00 - 0.60 x10E9/L 02/12/2024 1:43 PM CDT [facility] Basophil Absolute 0.09 0.00 - 0.13 x10E9/L 02/12/2024 1:43 PM CDT [facility] Blood BLOOD SPECIMEN / Unknown Venipuncture / Unknown 02/12/2024 1:38 PM CDT 02/12/2024 1:38 PM CDT Shabbir Lan MD LAB - HEMATOLOGY ORD ERABLES [facility] [address] [place] [address] * (ABNORMAL) COMPREHENSIVE METABOLIC PANEL (02/12/2024 1:38 PM CDT) Glucose 134(H) 70 - 105 mg/dL 02/12/2024 2:01 PM CDT [facility] Sodium 139 136 - 145 mmol/L 02/12/2024 2:01 PM CDT [facility] Potassium 3.6 3.5 - 5.1 mmol/L 02/12/2024 2:01 PM CDT [facility] Chloride 107 98 - 107 mmol/L 02/12/2024 2:01 PM CDT [facility] CO2 21(L) 22 - 29 mmol/L 02/12/2024 2:01 PM CDT [facility] Calcium 9.2 8.4 - 10.4 mg/dL 02/12/2024 2:01 PM CDT [facility] Anion Gap 11 6 - 16 mmol/L 02/12/2024 2:01 PM CDT [facility] BUN 18 7 - 26 mg/dL 02/12/2024 2:01 PM CDT [facility] Creatinine 1.12 0.72 - 1.25 mg/dL 02/12/2024 2:01 PM CDT [facility] Alkaline Phosphatase 58 40 - 150 U/L 02/12/2024 2:01 PM CDT [facility] ALT 24 0 - 55 U/L 02/12/2024 2:01 PM CDT [facility] AST 17 5 - 34 U/L 02/12/2024 2:01 PM CDT [facility] Protein Total 7.1 6.4 - 8.3 gm/dL 02/12/2024 2:01 PM CDT [facility] Albumin 4.1 3.4 - 5.0 gm/dL 02/12/2024 2:01 PM CDT [facility] Bilirubin Total 0.7 0.2 - 1.2 mg/dL 02/12/2024 2:01 PM CDT [facility] eGFR by CKD-EPI 78(L) >=90 mL/min/1.7 3 m2 02/12/2024 2:01 PM CDT [facility] Blood BLOOD SPECIMEN / Unknown Venipuncture / Unknown 02/12/2024 1:38 PM CDT 02/12/2024 1:38 PM CDT Shabbir Lan MD [facility] Organization Address City/State/[facility] de Phone Number [facility] [address] [place] [address] * CT ANGIO BRAIN NECK STROKE (02/12/2024 1:36 PM CDT) Anatomical Region Laterality Modality Head Computed Tomogra phy 02/12/2024 1:42 PM CDT Impressions 02/12/2024 1:46 PM CDT IMPRESSION: NO ACUTE INTRACRANIAL ABNORMALITIES. LEFT MAXILLARY SINUS DISEASE. CT ANGIOGRAPHY NECK WITH CONTRAST CT ANGIOGRAPHY HEAD WITH CONTRAST CT 3D RECONSTRUCTION Clinical Indication: Acute altered mental status and dizziness. Acute stroke, CVA. Technique: Axial CT images from the transverse aortic arch through the cranial vertex were obtained following the administration of 90 cc Isovue-370 intravenous contrast. Multiplanar reformatted, maximum intensity projection, and 3D volume rendered reconstructions of the arterial vasculature of the neck and brain was performed on an independent workstation. All CT scans at [facility] are performed using dose optimization techniques as appropriate to a performed exam to include AEC and Adjustment of mA and/or kV according to patient size. [employer] software was utilized for large vessel occlusion detection. Findings: CTA Neck: Indirect assessment of the distal portions of the bilateral internal carotid arteries relative to the proximal portions reveals no hemodynamically significant stenosis. There is wide patency of the common carotid, internal carotid, external carotid, and vertebral arteries. There is no evidence of vessel stenosis or vessel occlusion. IMPRESSION: NO HEMODYNAMICALLY SIGNIFICANT STENOSIS. CTA Brain: The internal carotid arteries, middle cerebral arteries, anterior cerebral arteries, vertebral arteries, posterior cerebral arteries, basilar artery, and branch vessels of the [place] are widely patent without evidence of vessel stenosis or vessel occlusion. No intracranial aneurysms are identified. IMPRESSION: NO FLOW-LIMITING INTRACRANIAL ARTERIAL STENOSIS > Interpreting Provider: Ferny Saravia MD on 02/12/2024 1:46 PM Narrative 02/12/2024 1:[address] SCAN OF THE BRAIN WITHOUT CONTRAST CLINICAL INDICATION: Acute altered mental status and dizziness. Acute stroke, CVA. COMPARISON: None available TECHNIQUE: Axial CT imaging of the brain was performed without contrast. Coronal and sagittal multiplanar reformatted images were created. All CT scans at [facility] are performed using dose optimization techniques as appropriate to a performed exam to include AEC and Adjustment of mA and/or kV according to patient size. [employer] software was utilized for intracranial hemorrhage detection. FINDINGS: There is no evidence of acute intracranial hemorrhage or recent cortical infarction. There is no mass or midline shift. Ventricular and sulcal size is within normal limits. There are no extra-axial fluid collections. The bony calvarium is intact. Mild to moderate mucosal thickening floor left maxillary sinus. Procedure Note Ferny Saravia MD - 02/12/2024 CT SCAN OF THE BRAIN WITHOUT CONTRAST CLINICAL INDICATION: Acute altered mental status and dizziness. Acute stroke, CVA. COMPARISON: None available TECHNIQUE: Axial CT imaging of the brain was performed without contrast. Coronal and sagittal multiplanar reformatted images were created. All CT scans at [facility] are performed using dose optimization techniques as appropriate to a performed exam to include AEC and Adjustment of mAand/or kV according to patient size. [employer] software was utilized forintracranial hemorrhage detection. FINDINGS: There is no evidence of acute intracranial hemorrhage or recent cortical infarction. There is no mass or midline shift. Ventricular and sulcalsize is within normal limits. There are no extra-axial fluid collections. The bony calvarium is intact. Mild to moderate mucosal thickening floor left maxillary sinus. IMPRESSION: NO ACUTE INTRACRANIAL ABNORMALITIES. LEFT MAXILLARY SINUS DISEASE. CT ANGIOGRAPHY NECK WITH CONTRAST CT ANGIOGRAPHY HEAD WITH CONTRAST CT 3D RECONSTRUCTION Clinical Indication: Acute altered mental status and dizziness. Acute stroke, CVA. Technique: Axial CT images from the transverse aortic arch through the cranial vertex were obtained following the administration of 90 cc Isovue-370 intravenous contrast. Multiplanar reformatted, maximumintensity projection, and 3D volume rendered reconstructions of the arterial vasculature of the neck and brain was performed on an independent workstation. All CT scans at [facility] are performed using dose optimization techniques as appropriate to a performed exam to include AEC andAdjustment of mA and/or kV according to patient size. [employer] software was utilizedfor large vessel occlusion detection. Findings: CTA Neck: Indirect assessment of the distal portions of the bilateral internal carotid arteries relative to the proximal portions reveals no hemodynamically significant stenosis. There is wide patency of thecommon carotid, internal carotid, external carotid, and vertebral arteries.There is no evidence of vessel stenosis or vessel occlusion. IMPRESSION: NO HEMODYNAMICALLY SIGNIFICANT STENOSIS. CTA Brain: The internal carotid arteries, middle cerebral arteries, anteriorcerebral arteries, vertebral arteries, posterior cerebral arteries, basilarartery, and branch vessels of the [place] are widely patent without evidence of vessel stenosis or vessel occlusion. No intracranialaneurysms are identified. IMPRESSION: NO FLOW-LIMITING INTRACRANIAL ARTERIAL STENOSIS > Interpreting Provider: Ferny Saravia MD on 02/12/2024 1:46 PM Shabbir Lan MD CT ORDERABLES * EKG 12-LEAD (02/12/2024 1:31 PM CDT) Ventricular Rate 53 BPM [facility] Atrial Rate 53 BPM [facility] P-R Interval 184 ms [facility] QRS Duration ms 92 ms [facility] Q-T Interval ms 426 ms [facility] QTC Calculation (Bezet) 399 ms [facility] Calculated P Savage 33 degrees [facility] Calculated R Savage 46 degrees [facility] Calculated T Savage 41 degrees [facility] Interpretation EKG Sinus bradycardia Increased R/S ratio in V1, consider early transition or posterior infarct Abnormal ECG Confirmed by YOLANDA GARCIA MD ([id number]) on 02/12/2024 8:45:20 PM [facility] 02/12/2024 1:31 PM CDT 02/12/2024 8:45 PM CDT Shabbir Lan MD ECG ORDERABLES Performing Organization Address City/[facility]/ZIP Co de Phone Number [facility] * (ABNORMAL) CREATININE - POCT INTERFACED (02/12/2024 1:31 PM CDT) [facility] Creatinine POCT 1.13 0.70 - 1.20 mg/dL 02/12/2024 1:42 PM CDT [facility] eGFR 77(L) >=90 mL/min/1.7 3 m2 02/12/2024 1:42 PM CDT [facility] Blood BLOOD SPECIMEN / Unknown 02/12/2024 1:31 PM CDT 02/12/2024 1:42 PM CDT Shabbir Lan MD LAB - POINT OF CARE ORDERABLES Performing Organization Address City/[facility]/ZIP Co de Phone Number [facility] [address] [place] [phone] * CT BRAIN STROKE PROTOCOL (02/12/2024 1:27 PM CDT) Anatomical Region Laterality Modality Head Computed Tomogra phy 02/12/2024 1:42 PM CDT Impressions 02/12/2024 1:46 PM CDT IMPRESSION: NO ACUTE INTRACRANIAL ABNORMALITIES. LEFT MAXILLARY SINUS DISEASE. CT ANGIOGRAPHY NECK WITH CONTRAST CT ANGIOGRAPHY HEAD WITH CONTRAST CT 3D RECONSTRUCTION Clinical Indication: Acute altered mental status and dizziness. Acute stroke, CVA. Technique: Axial CT images from the transverse aortic arch through the cranial vertex were obtained following the administration of 90 cc Isovue-370 intravenous contrast. Multiplanar reformatted, maximum intensity projection, and 3D volume rendered reconstructions of the arterial vasculature of the neck and brain was performed on an independent workstation. All CT scans at [facility] are performed using dose optimization techniques as appropriate to a performed exam to include AEC and Adjustment of mA and/or kV according to patient size. [employer] software was utilized for large vessel occlusion detection. Findings: CTA Neck: Indirect assessment of the distal portions of the bilateral internal carotid arteries relative to the proximal portions reveals no hemodynamically significant stenosis. There is wide patency of the common carotid, internal carotid, external carotid, and vertebral arteries. There is no evidence of vessel stenosis or vessel occlusion. IMPRESSION: NO HEMODYNAMICALLY SIGNIFICANT STENOSIS. CTA Brain: The internal carotid arteries, middle cerebral arteries, anterior cerebral arteries, vertebral arteries, posterior cerebral arteries, basilar artery, and branch vessels of the [place] are widely patent without evidence of vessel stenosis or vessel occlusion. No intracranial aneurysms are identified. IMPRESSION: NO FLOW-LIMITING INTRACRANIAL ARTERIAL STENOSIS > Interpreting Provider: Ferny Saravia MD on 02/12/2024 1:46 PM Narrative 02/12/2024 1:[address] SCAN OF THE BRAIN WITHOUT CONTRAST CLINICAL INDICATION: Acute altered mental status and dizziness. Acute stroke, CVA. COMPARISON: None available TECHNIQUE: Axial CT imaging of the brain was performed without contrast. Coronal and sagittal multiplanar reformatted images were created. All CT scans at [facility] are performed using dose optimization techniques as appropriate to a performed exam to include AEC and Adjustment of mA and/or kV according to patient size. [employer] software was utilized for intracranial hemorrhage detection. FINDINGS: There is no evidence of acute intracranial hemorrhage or recent cortical infarction. There is no mass or midline shift. Ventricular and sulcal size is within normal limits. There are no extra-axial fluid collections. The bony calvarium is intact. Mild to moderate mucosal thickening floor left maxillary sinus. Procedure Note Ferny Saravia MD - 02/12/2024 CT SCAN OF THE BRAIN WITHOUT CONTRAST CLINICAL INDICATION: Acute altered mental status and dizziness. Acute stroke, CVA. COMPARISON: None available TECHNIQUE: Axial CT imaging of the brain was performed without contrast. Coronal and sagittal multiplanar reformatted images were created. All CT scans at [facility] are performed using dose optimization techniques as appropriate to a performed exam to include AEC and Adjustment of mAand/or kV according to patient size. [employer] software was utilized forintracranial hemorrhage detection. FINDINGS: There is no evidence of acute intracranial hemorrhage or recent cortical infarction. There is no mass or midline shift. Ventricular and sulcalsize is within normal limits. There are no extra-axial fluid collections. The bony calvarium is intact. Mild to moderate mucosal thickening floor left maxillary sinus. IMPRESSION: NO ACUTE INTRACRANIAL ABNORMALITIES. LEFT MAXILLARY SINUS DISEASE. CT ANGIOGRAPHY NECK WITH CONTRAST CT ANGIOGRAPHY HEAD WITH CONTRAST CT 3D RECONSTRUCTION Clinical Indication: Acute altered mental status and dizziness. Acute stroke, CVA. Technique: Axial CT images from the transverse aortic arch through the cranial vertex were obtained following the administration of 90 cc Isovue-370 intravenous contrast. Multiplanar reformatted, maximumintensity projection, and 3D volume rendered reconstructions of the arterial vasculature of the neck and brain was performed on an independent workstation. All CT scans at [facility] are performed using dose optimization techniques as appropriate to a performed exam to include AEC andAdjustment of mA and/or kV according to patient size. [employer] software was utilizedfor large vessel occlusion detection. Findings: CTA Neck: Indirect assessment of the distal portions of the bilateral internal carotid arteries relative to the proximal portions reveals no hemodynamically significant stenosis. There is wide patency of thecommon carotid, internal carotid, external carotid, and vertebral arteries.There is no evidence of vessel stenosis or vessel occlusion. IMPRESSION: NO HEMODYNAMICALLY SIGNIFICANT STENOSIS. CTA Brain: The internal carotid arteries, middle cerebral arteries, anteriorcerebral arteries, vertebral arteries, posterior cerebral arteries, basilarartery, and branch vessels of the [place] are widely patent without evidence of vessel stenosis or vessel occlusion. No intracranialaneurysms are identified.
--- OUTSIDE RECORDS SUMMARY | 2024-09-02 14:21 | XMS_ITS | Clinical Summary ---
Author Organization [facility] [employer] Address [address] [place] [address] Care Team Providers Care Hazard Waste Handler Name Role Phone Unavailable Primary Care Provider Unavailabl e Source Comments [facility] [employer],non-owned Affiliates and Associated Physician Practices is amultiple site organization consisting of ambulatory clinics and hospital sitesin [place], [place], [place] and [place]. This disclosure is being madepursuant to the Care Everywhere program and may not contain all information available regarding this patient. Last updated 18.[facility] [employer] Allergies No known active allergies Medications * [...] and heating? Not hard at all 02/13/2024 [facility] - Occupational Stress [...] Mass Index 35.54 02/13/2024 11:19 AM CDT Plan of Treatment Health Maintenance Due Date Last Done Comments COLOGUARD (AGES 45-75) - COL ON CA SCREENING 1968 COLON MONITORING 1968 COLONOSCOPY - COLON CA SCREENING 1968 CT COLONOGRAPHY - COLON CA SCREENING 1968 Colorectal Cancer Screening 1968 FIT - COLON CA SCREENING 1968 FLEX SIG - COLON CA SCREENING 1968 HIV SCREENING 1983 HEPATITIS C SCREENING 03/19/1986 DTAP/TDAP/TD VACCINES (1 - Tdap) 1987 HEPATITIS B VACCINE (1 of 3 - 19+ 3-dose series) 1987 PNEUMOCOCCAL VACCINE 50+ (1 of 1 - PCV) 2018 ZOSTER VACCINE (1 of 2) 2018 COVID-19 VACCINE (3 - 2023-2 5 season) 2024 10/26/2020, 10/05/2020 INFLUENZA VACCINE (#1) 2024 DEPRESSION SCREENING 07/30/2024 HIB VACCINE Aged Out No longer eligi ble based on patient's age to complete this topic HPV VACCINE Aged Out No longer eligi ble based on patient's age to complete this topic MENINGOCOCCAL (Group B) VACCINE Aged Out No longer eligible b ased on patient's age to complete this topic MENINGOCOCCAL VACCINE Aged Out No lee uriah eligible based on patient's age to complete this topic PNEUMOCOCCAL VACCINE Aged Out No long er eligible based on patient's age to complete this topic Advance Directives * Full Code (Latest Code Status on File) Date Activated Date Inactivated Comments 02/12/2024 3:50 PM 02/13/2024 5:26 PM
== END 2024-09-02 14:04 | disposition home or self-care (01) ==
LOC: ANHIMG 14:04
PROVIDERS: PCP Nurse Practitioner Family; Visit Provider Nurse Practitioner Family
DX: S59.901A Unspecified injury of right elbow, initial encounter (principal); X58.XXXA Exposure to other specified factors, initial encounter
CPT/HCPCS: 73070

== ENCOUNTER 2024-12-08 10:08 | Emergency (ER) | payer OTHER, SELFPAY ==
--- NOTE | ~2024-12-08 | XR_ITS ---
XR knee LT 3V Ordering provider: Mary Hernandez APRN History: . pain, swelling X SUNDAY, NKI . Comparison: None. FINDINGS: BONES: No acute fracture or dislocation. JOINT SPACES: Normal. SOFT TISSUES: Normal. IMPRESSION: No acute osseous abnormality left knee. Reviewed, dictated and finalized at location A.
--- OUTSIDE RECORDS SUMMARY | 2024-12-08 10:11 | XMS_ITS | Encounter Summary ---
Author Organization [facility] Address [address] [place] [address] Care Team Providers Care Primary Education Professor Name Role Phone Unavailable Primary Care Provider Unavailabl e Prior Encounters Date Type Department Care Team Description 08/18/2019 Converted CPS Chart Documents [facility] [address] [place] [phone] <No scans attached> 08/18/2019 Converted 13x Documents [facility] [address] [place] [phone] <No scans attached> Plan of Treatment Not on file Procedures Procedure Name Priority Date/Time Associated Diagnosis Comments PERIO CONSULT Routine 06/28/2020 2:00 AM AVID EDITOR ADJUST PARTIAL DENTURE - MAXILLARY Routine 06/01/2020 2:00 AM AVID EDITOR ORAL SURG CONSULT Routine 05/28/2020 2:0 0 AM CDT THERAPEUTIC PARENTERAL DRUGS, TWO OR MORE ADMINISTRATIONS, DIFFERENT MEDICATIONS Routine 05/28/2020 2:00 AM CDT DEEP SEDATION/GENERAL ANESTHESIA FIRST 15 MINUTES Routine 05/28/2020 2:00 AM [...] TEETH PER QUADRANT Routine 07/24/2017 2:00 AM AVID EDITOR ORAL HYGIENE INSTRUCTIONS Routine 2016 2:00 AM AVID EDITOR UR ANTIBACT IRR/QUAD Routine 07/24/2017 2:00 AM AVID EDITOR UL PERIODONTAL SCALING AND ROOT PLANING - [...]
--- OUTSIDE RECORDS SUMMARY | 2024-12-08 10:11 | XMS_ITS | Clinical Summary ---
Author Organization [facility] [place] [place] Address [address] [place] [address] Care Team Providers Care Grinder Tender Name Role Phone Unavailable Primary Care Provider [...]
--- OUTSIDE RECORDS SUMMARY | 2024-12-08 10:11 | XMS_ITS | Clinical Summary ---
Author Organization [facility] Address [address] [place] [address] Care Team Providers Care Vacuum Cleaner Repairer Name Role Phone Unavailable Primary Care Provider Unavailabl e Source Comments [facility],non-owned Affiliates and Associated Physician Practices is amultiple site organization consisting of ambulatory clinics and hospital sitesin [place], [place], [place] and [place]. This disclosure is being madepursuant to the Care Everywhere program and may not contain all information available regarding this patient. Last updated 18.[facility] Allergies No known active allergies Medications * Be aware that medications may not be up to date on this document. Alwaysverify current medications with the patient. meclizine (Antivert) 25 MG tablet Take 1 [...] and heating? 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 Gender Identity Not on file Sexual Orientation Not on file Last Filed Vital Signs Vital Sign Reading Time Taken Comments Blood Pressure 119/80 02/13/2024 11:19 AM CDT Pulse 50 02/13/2024 11:19 AM CDT Temperature 36.8 C (98.2 F) 02/13/2024 11:19 AM CDT Respiratory Rate 18 02/13/2024 11:19 AM CDT [...] - 2023-2 5 season) 2024 10/26/2020, 10/05/2020 DEPRESSION SCREENING 07/30/2024 INFLUENZA VACCINE (Season Ended) 2025 HIB VACCINE Aged Out No longer eligi ble based on patient's age to complete this topic HPV VACCINE Aged Out No longer eligi ble based on patient's age to complete this topic MENINGOCOCCAL (Group B) VACCINE SHARED DECISION-MAKING Aged Out No longer eligible based on patient's age to complete this topic MENINGOCOCCAL GROUPS A/C/Y/W VACCINE Aged Out No longer eligible b ased on patient's age to complete this topic Insurance [facility] [address] [facility] [address] Advance Directives * Full Code (Latest Code Status on File) Date Activated Date Inactivated Comments 02/12/2024 3:50 PM 02/13/2024 5:26 PM
[2024-12-08 10:18] VITALS: BP 108/81; PULSE 81; RESP 18; TEMP 36.7; O2SAT 98
[2024-12-08 10:55] VITALS: BP 147/47; PULSE 60; RESP 16; O2SAT 100
--- NOTE | 2024-12-08 11:06 | ED_ITS ---
HPI - Extremity Problem General Chief complaint: Extremity Problem,Nontraumatic Stated complaint: L KNEE PAIN X4D NO INJURY Time Seen by Provider: 12/08/24 10:17 History of Present Illness HPI Narrative: Patient is a 54-year-old male presents to the ER with left knee pain that started on Sunday, 3 days ago. 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 Patient denies any recent injury to the area, calf pain or fevers. He reports the pain is worse when he does weight-bearing activities or bend his knee. Patient reports approximately 14 years ago he had a similar situation that brought him into the ER. He reports his knee was drained at that time and he had a slight tear in his MCL. Patient endorses a history of cholecystectomy, but denies any other pertinent medical history. He endorses some pain behind his L knee. Related Data Allergies Allergy/AdvReac Type Severity Reaction Status Date / Time No Known Allergies Allergy Unknown Verified 09/02/24 13:22 Review of Systems Review of Systems: All systems reviewed & are unremarkable except as noted in HPI and below PMFSH Past Medical History Medical History Tobacco abuse Obesity Tear of medial meniscus of right knee, current Osteoarthritis of right knee Surgical History Surgical History History of arthroscopy of right knee July 04, 2021 Partial medial meniscectomy Family History Family History Mother Family history of malignant neoplasm IBS (irritable bowel syndrome) Father Family history of gout Family history of cardiovascular disease Diabetes mellitus Family history of arthritis Acute myocardial infarction Sibling Family history of malignant neoplasm Ovarian cancer Social History Social History Smoking packs per day: 0.5 Smoking cigarettes per day: 10.0 Years smoked: 35 Smoking pack-years: 17.50 Smoking status: Current every day smoker Tobacco type: cigarettes Alcohol intake: current Drinks per week: 2 Alcohol use details: BEERS OR COCKTAIL Substance use: current Substance use type: marijuana Other substance usage details: DAILY Living arrangements: with family Occupation/Education: occupation 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 HEAD: Normocephalic, atraumatic. NECK: Supple. No adenopathy, no masses. RESPIRATORY: Airway patent, respirations nonlabored. Clear to auscultation bilaterally, no rales, rhonchi, wheezing. CARDIOVASCULAR: Regular rate and rhythm without murmurs, rubs, or gallops. Peripheral pulses 2+ and equal bilaterally. ABDOMINAL: Soft, nontender, nondistended, no hepatosplenomegaly. Normoactive BS. MUSCULOSKELETAL: Moves all extremities. Strength/ROM intact without gross deformities. L knee mild edema, no increased pain with internal or external rotation, increased pain with knee flexion, - Angella's sign SKIN: Warm, dry, normal color. No rashes. NEURO: A&O X3. Speech clear. Cranial nerves II-XII intact. No ataxic movements. PSYCHIATRIC: Appropriate mood and affect. Normal interaction. Course Vital Signs Vital signs: Vital Signs Temperature 36.7 C 12/08/24 10:18 Pulse Rate 81 12/08/24 10:18 Respiratory Rate 18 12/08/24 10:18 Blood Pressure 108/81 12/08/24 10:18 Pulse Oximetry 98 12/08/24 10:18 Oxygen Delivery Room Air 12/08/24 10:18 Temperature 36.7 C 12/08/24 10:18 Pulse Rate 60 12/08/24 10:55 Respiratory Rate 16 12/08/24 10:55 Blood Pressure 147/47 H 12/08/24 10:55 Pulse Oximetry 100 12/08/24 10:55 Oxygen Delivery Room Air 12/08/24 10:18 MDM - Extremity (Nontraumatic) MDM Narrative Medical decision making narrative: Patient is a 54-year-old male presents to the ER with left knee pain that started on Sunday, 3 days ago. 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 Patient denies any recent injury to the area, calf pain or fevers. He reports the pain is worse when he does weight-bearing activities or bend his knee. Patient reports approximately 14 years ago he had a similar situation that brought him into the ER. He reports his knee was drained at that time and he had a slight tear in his MCL. Patient endorses a history of cholecystectomy, but denies any other pertinent medical history. He endorses some pain behind his L knee. Labs Ordered: None necessary Imaging Ordered: L knee x-ray Medications Ordered: Toradol 60mg IM, Lidocaine 5% patch Results: Patient's x-ray indicates No acute osseous abnormality left knee. Diagnosis: L knee sprain, L knee musculoskeletal injury Consults: orthopedic surgery (outpatient) Patient Education/Shared MDM: Results of imaging shared with patient. He endor ses mild improvement of symptoms following medication administration. Patient strongly advised to maintain hydration status upon discharge and follow-up with orthopedics as soon as possible. He will be discharged home with a prescription for Meloxicam, Lidocaine patches. Strict return precautions provided. Patient verbalized understanding and is in agreement with plan. Vital signs stable at t osvaldo of discharge. All questions answered. Differential Diagnosis Differential diagnosis: Likely cellulitis, lower extremity edema and other (L knee sprain, L knee musculoskeletal injury) Discharge Plan Discharge Clinical Impression: Injury of knee, left, Pain and swelling of left knee Patient Disposition: Home Condition: Stable Instructions: Antibiotic Form, Knee Sprain (ED), P.R.I.C.E. Treatment (ED) Additional Instructions: Please return to the ER with any worsening symptoms. Follow-up with Orthopedic surgery as soon as possible. You may wear your knee immobilizer for comfort and support. Take all regularly scheduled medications. You may use lidocaine patches and meloxicam for pain and swelling. Patient Language: [place] Prescriptions: New meloxicam 15 mg tablet 15 mg PO DAILY Qty: 14 0RF lidocaine 5 % adhesive patch,medicated 1 patch topical DAILY Qty: 30 0RF Rx Instructions: leave on most painful area for up to 12 hrs No Action naproxen 500 mg tablet 500 mg PO BID PRN (Reason: pain) Qty: 30 0RF Rx Instructions: take w/ food atorvastatin 80 mg tablet 80 mg PO DAILY Qty: 90 1RF Follow-up/Referrals: Nishi Huizar APRN [Primary Care Provider] - Ton Jackson MD [Physician] - (orthopedics) Stand Alone Forms: Work/School Release IP Time of Disposition: 12:40
[2024-12-08] MEDS: KETOROLAC (*BKC) 60 MG/2 ML VIAL IM (11:21)
[2024-12-08] MEDS: LIDOCAINE 5% PATCH 1 PATCH TRANSDERM (13:39)
[2024-12-08 13:52] VITALS: BP 144/95; PULSE 64; RESP 18; O2SAT 100
== END 2024-12-08 13:55 | disposition home or self-care (01) ==
PROVIDERS: Emergency Provider Registered Nurse; PCP Nurse Practitioner Family
DX: S89.92XA Unspecified injury of left lower leg, initial encounter (principal); M25.462 Effusion, left knee; M17.11 Unilateral primary osteoarthritis, right knee; E66.9 Obesity, unspecified; Z68.37 Body mass index [BMI] 37.0-37.9, adult; F17.210 Nicotine dependence, cigarettes, uncomplicated; Z90.49 Acquired absence of other specified parts of digestive tract; X58.XXXA Exposure to other specified factors, initial encounter
CPT/HCPCS: 73562; 96372; 99283; A9270; J1885

== ENCOUNTER 2025-01-02 15:03 | Outpatient (CLI) | payer OTHER, SELFPAY ==
--- NOTE | ~2025-01-02 | MR_ITS ---
EXAMINATION: MR knee LT wo con DATE: 01/02/2025 15:35 INDICATION: Left knee pain TECHNIQUE: Magnetic resonance imaging (MRI) of the left knee was performed without intravenous contra st. Sequences included coronal PD-weighted FSE, coronal PD-weighted FS FSE, sagittal T2-weighted FSE , sagittal PD-weighted FS FSE and axial PD weighted fat saturated FSE. COMPARISON: None. FINDINGS: Medial compartment: Complex medial meniscal tear which includes a longitudinal tear plane extending to the inferior artic ular surface and the peripheral third of the posterior body and posterior horn of the medial meniscus . The the posterior body and posterior horn appear slightly smaller than expected and there is a disp laced meniscal flap which extends cephalad from the anterior body of the meniscus into the recess svetlana ng the medial side of the medial femoral condyle. Articular cartilage is normal. Lateral compartment: Lateral meniscus is normal. Articular cartilage is normal. Patellofemoral compartment: Deep chondral fissuring without degenerative subchondral changes at the medial patellar facet. Shallo w chondral surface regularity along the patellar apical ridge. Trochlear cartilage is normal. Ligaments and tendons: Anterior and posterior cruciate ligaments are normal. The medial collateral ligament and fibular shantal ateral ligament complex are normal. The extensor mechanism is normal. The visualized medial and later al hamstring tendons as well as the iliotibial band are normal. Fluid: Small left knee joint effusion. No loose osteochondral bodies identified. Osseous/other: Small intraosseous ganglion cyst in the proximal tibia which appears to originate near the footplate of the lateral meniscus and the posterior cruciate ligament. Normal marrow signal. No fracture or pat hologic marrow replacing process. IMPRESSION: 1. Complex tear of the posterior horn and posterior body of the medial meniscus with cephalad displac ement of a meniscal flap arising from the anterior body of the meniscus. 2. Small region of shallow chondral fissuring at the patellar apical ridge with deeper fissuring of t he medial facet. 3. Small left knee joint effusion. Reviewed, dictated and finalized at location A. IMPRESSION: 1. Complex tear of the posterior horn and posterior body of the medial meniscus with cephalad displacement of a meniscal flap arising from the anterior body o f the meniscus. 2. Small region of shallow chondral fissuring at the patellar apical ridge with deeper fissuring of the medial facet. 3. Small left knee joint effusion.
== END 2025-01-02 15:04 | disposition home or self-care (01) ==
LOC: GOSHIMG 15:04
PROVIDERS: PCP Nurse Practitioner Family; Visit Provider Nurse Practitioner Family
DX: S83.232A Complex tear of medial meniscus, current injury, left knee, initial encounter (principal); M25.462 Effusion, left knee; G89.29 Other chronic pain; X58.XXXA Exposure to other specified factors, initial encounter
CPT/HCPCS: 73721

== ENCOUNTER 2025-02-02 12:50 | Outpatient (CLI) | payer OTHER, SELFPAY ==
--- OUTSIDE RECORDS SUMMARY | 2025-02-02 12:58 | XMS_ITS | Clinical Summary ---
Author Organization [facility] Address [address] [place] [address] Care Team Providers Care Chemical Inspector Name Role Phone Unavailable Primary Care Provider Unavailabl e Source Comments [facility],non-owned Affiliates and Associated Physician Practices is amultiple site organization consisting of ambulatory clinics and hospital sitesin [place], [place], [place] and [place]. This disclosure is being madepursuant to the Care Everywhere program and may not contain all information available regarding this patient. Last updated 18.[facility] Allergies No known active allergies Medications * [...] and heating? Not hard at all 02/13/2024 [facility] of Occupat ional Health - Occupational Stress [...] place to sleep or slept in a fci (including now)? 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
--- OUTSIDE RECORDS SUMMARY | 2025-02-02 12:58 | XMS_ITS | Clinical Summary ---
Author Organization [facility] Address [address] [place] [address] Care Team Providers Care Operating System Designer Name Role Phone Unavailable Primary Care Provider [...]
--- OUTSIDE RECORDS SUMMARY | 2025-02-02 12:58 | XMS_ITS | Encounter Summary ---
Author Organization [facility] Address [address] [place] [address] Care Team Providers Care Sleeve Baster Name Role Phone Unavailable Primary Care Provider Unavailabl e Prior Encounters Date Type Department Care Team Description 08/18/2019 Converted CPS Chart Documents [facility] [address] [place] [phone] <No scans attached> 08/18/2019 Converted 13x Documents [facility] [address] [place] [phone] <No scans attached> Plan of Treatment Not on file Procedures Procedure Name Priority Date/Time Associated Diagnosis Comments PERIO CONSULT Routine 06/28/2020 2:00 AM 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
--- NOTE | 2025-02-02 13:00 | ECG_ITS ---
Test Date: 2025-02-02 13:15:17 Measurements Intervals [place] Rate: 58 P: 22 HI: 182 QRS: 25 QRSD: 86 T: 32 QT: 389 QTc: 383 Interpretive Statements SINUS BRADYCARDIA WITH SINUS ARRHYTHMIA WARNING: DATA QUALITY MAY AFFECT INTERPRETATION No previous ECG available for comparison Electronically Signed On 02-02-2025 22:14:16 CDT by Violeta Gandhi M.D.
== END 2025-02-02 12:51 | disposition home or self-care (01) ==
LOC: ANHSURGERY 12:54
PROVIDERS: PCP Nurse Practitioner Family; Visit Provider Orthopaedic Surgery
DX: Z01.810 Encounter for preprocedural cardiovascular examination (principal); E78.5 Hyperlipidemia, unspecified; F17.210 Nicotine dependence, cigarettes, uncomplicated
CPT/HCPCS: 93005

== ENCOUNTER 2025-02-05 00:34 | Day surgery (SDC) | payer OTHER, SELFPAY ==
[2025-01-29 09:38] VITALS: BMI 37.0
--- NOTE | 2025-01-29 09:44 | PC.NURSE ---
Report to the Outpatient Waiting Room, entrance under the green pavilion located off [facility], at time _0600_ on date _[id number]_. Planned Procedure Time: _0730_.? Time changes happen often and if your time is changed the preop area will call you the afternoon before. - You and your visitor will be asked to self-screen and do not enter if you have any COVID symptoms. Please call surgeon if you need to reschedule. - A mask is optional within the hospital at this time. Patients may have clear liquids (water, carbonated beverages, clear teas, apple juice) until 3 hours prior to surgery with a maximum of 20 ounces. - No food from midnight until time of surgery and no smoking, or chewing tobacco (or any form of nicotine). No chewing gum, candy or mints. Take only the following medications with a SIP of water on the morning of surgery: ___None____ DO NOT STOP ANY OF YOUR OTHER PRESCRIPTION MEDICATIONS PRIOR TO SURGERY EXCEPT THE FOLLOWING Hold all vitamins and supplements for 3 days per anesthesiologist. Medications to discontinue per physician Date to take last dose Please no make-up, nail lithuanian, hairspray, perfume, deodorant, or body powder the day of surgery.? No jewelry (including any body piercings) or valuables the day of surgery, leave them at home.? Please take a shower or bath the night before, or the morning of, surgery with an antibacterial soap.? Wear comfortable, loose fitting clothing.? - Jewelry must be removed prior to entering the operating room.? Rings and piercings that are not removed may be cut off. - The hospital will not accept responsibility for valuables.? - Please leave all valuables, including medications, at home the day of surgery. If you are going home after surgery, a licensed entry driver operator must drive you home.? - NO public transportation without another adult if you receive anesthesia. - We recommend that an adult stay with you for 24 hours following discharge. - We also recommend that you do not drive, make important decision, drink alcoholic beverages, or take any drugs that were not prescribed by your health care provider for at least 24 hours after your discharge time. Follow any additional instructions given to you from your surgeon. Telephone instructions given to __Rich___and asked if any additional questions and then verbalized understanding. Patient advised to call surgeon office or pre surgery nurse liaison [phone] if any additional questions.
[2025-02-05] VITALS (8 sets, daily range): BP systolic 135–157; BP diastolic 84–99; PULSE 51–65; RESP 10–16; TEMP 36.2–36.3; O2SAT 95–100; BMI 37.8
--- OUTSIDE RECORDS SUMMARY | 2025-02-05 00:37 | XMS_ITS | Encounter Summary ---
Author Organization [facility] Health Address [address] [place] [address] Care Team Providers Care Mid Level Java Developer Name Role Phone Unavailable Primary Care Provider Unavailabl e Prior Encounters Date Type Department Care Team Description 08/18/2019 Converted CPS Chart Documents [facility] [address] [place] [phone] <No scans attached> 08/18/2019 Converted 13x Documents [facility] [address] [place] [phone] <No scans attached> Plan of Treatment Not on file Procedures Procedure Name Priority Date/Time Associated Diagnosis Comments PERIO CONSULT Routine 06/28/2020 2:00 AM 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
--- OUTSIDE RECORDS SUMMARY | 2025-02-05 00:37 | XMS_ITS | Clinical Summary ---
Author Organization [facility] [employer] [facility] Address [address] [place] [address] Care Team Providers Care Neurologist Name Role Phone Unavailable Primary Care Provider Unavailabl e Source Comments [facility] [employer] [facility] [facility],non-owned Affiliates and Associated Physician Practices is amultiple site organization consisting of ambulatory clinics and hospital sitesin [place], [place], [place] and [place]. This disclosure is being madepursuant to the Care Everywhere program and may not contain all information available regarding this patient. Last updated 18.[facility] [employer] Allergies No known active allergies Medications * [...] and heating? 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
--- OUTSIDE RECORDS SUMMARY | 2025-02-05 00:37 | XMS_ITS | Clinical Summary ---
Author Organization [facility] Address [address] [place] [address] Care Team Providers Care Braille Transcriber Name Role Phone Unavailable Primary Care Provider [...]
--- NOTE | 2025-02-05 06:45 | WPDANESEPPF ---
Anes - Initial Pre Proc Eval Procedure: Operation Date: 02/05/25 07:30 Proposed Procedures p Left Knee Arthroscopy, Debride Meniscus, Synovectomy, Chondroplasty, Proceed As Indicated - Ton Jackson MD Date/Time: 02/05/25 06:45 Surgeon: Ton Jackson MD Pre Op Diagnosis: lft knee pain, med meniscal tear, synovitis,chondr Patient Data Age: 54 Gender: M Height: 1.8 m Weight: 120.5 kg Allergies Allergy/AdvReac Type Severity Reaction Status Date / Time No Known Allergies Allergy Unknown Verified 01/29/25 09:37 Home Medications ?Medication ?Instructions ?Recorded ?Confirmed ?Type atorvastatin 80 mg tablet 80 mg PO DAILY #90 tabs 09/02/24 01/29/25 Rx Patient hx anesthesia problems: none Family hx anesthesia problems: none Results Review: All pre-operative results and documents have been reviewed as part of the pre-operative evaluation. COUNT INCLUDES [facility] Past Medical History Medical History Medial meniscus tear Effusion, left knee Left knee pain Tobacco abuse Obesity Tear of medial meniscus of right knee, current Osteoarthritis of right knee Surgical History Surgical History History of arthroscopy of right knee July 04, 2021 Partial medial meniscectomy Family History Family History Mother Family history of malignant neoplasm IBS (irritable bowel syndrome) Father Family history of gout Family history of cardiovascular disease Diabetes mellitus Family history of arthritis Acute myocardial infarction Sibling Family history of malignant neoplasm Ovarian cancer Social History Social History Smoking packs per day: 1 Smoking cigarettes per day: 20.0 Years smoked: 35 Smoking pack-years: 35.00 Smoking status: Former smoker Tobacco type: cigarettes Smoking end date: 11/30/23 Alcohol intake: current Drinks per week: 2 Alcohol use details: BEERS OR COCKTAIL Substance use: current Substance use type: marijuana Other substance usage details: A couple times a month. Living arrangements: with family Occupation/Education: occupation Additional occupation/education comments: [employer] Gender identity (if verbalized by the patient): Male Spiritual care concerns: No Agree to blood products: Yes Anes - Eval Final PreProcedure Day of Procedure 02/05/25 06:45 Patient weight: obese Heart: regular rate and rhythm Lungs: clear to auscultation Airway: Mallampati scale class II Neurological: alert and oriented Last oral intake: >/= 8 hours ASA classification: III Emergent: no Anesthetic plan: proceed Anesthesia type and monitoring: general LMA and standard monitoring Results Review: All pre-operative results and documents have been reviewed as part of the pre-operative evaluation. Informed Consent: The patient's anesthetic plan and its attendant risks and benefits were discussed with the patient/family/POA. Questions were solicited and answers provided to the satisfaction of the patient/family/POA.
[2025-02-05] MEDS: LACTATED RINGERS 1,000 ML 30 ML IV CONT (06:50)
[2025-02-05] MEDS: KETOROLAC 15 MG/ML VIAL (*BKC) IV PUSH (06:52)
[2025-02-05] MEDS: ACETAMINOPHEN 500 MG TABLET 1000 MG PO (06:52)
--- NOTE | 2025-02-05 07:19 | WPDHPUPDATE1 ---
History and Physical Update Update Date/Time: 02/05/25 07:19 History and Physical has been reviewed, including an updated exam of the patient. There are NO changes in the patient's condition. Risks, benefits, and alternatives have been discussed and questions answered. Patient agrees to proceed with procedure.
[2025-02-05] MEDS: ceFAZolin 3 GM/D5W 100 ML 100 ML IVPB (07:29)
[2025-02-05] MEDS: BUPivacaine HCL 0.25% PF 10 ML VIAL INFILTRATE (07:56)
[2025-02-05] MEDS: BUPIVACAINE/EPINEPHRINE 0.5% 50 ML VIAL 10 ML INFILTRATE (07:56)
--- NOTE | 2025-02-05 08:43 | W.PM.PROC2 ---
Procedure Note - Detailed Date of Procedure 02/05/25 Pre-op Diagnosis lft knee pain, med meniscal tear, synovitis,chondr Post-op Diagnosis Same Procedure Performed Left knee arthroscopy with major synovectomy, partial medial meniscectomy Surgeon Ton Jackson MD Anesthesia General Indications 54-year-old with left knee pain. Status post injury. MRI demonstrates medial meniscus tear, synovitis chondromalacia. He has failed conservative treatment with cortisone injection, therapy, exercises and bracing. Presents for operative treat Description of Procedure Informed consent given by patient. Operative extremity marked in preoperative holding area. Patient received intravenous antibiotics. Patient brought to operating room and underwent general anesthetic by anesthesia team. Positioned supine on operating room table. Left leg placed into a posterior thigh leg escalante. Foot of the table dropped to 90? and right leg padded out of the field. Time-out performed confirming patient, site of surgery and plan. Left knee prepped and draped in usual sterile surgical fashion using ChloraPrep skin solution. Standard arthroscopic portals made by using a 11 blade knife for the anterior lateral portal 1st. Capsule penetrated bluntly. Camera and inflow started. The below operative findings noted. Intra-articular visualization used to position the anterior medial portal using 22 gauge spinal needle. A 11 blade knife used for the skin and blunt penetration of the capsule. 4.7 millimeter arthroscopic shaver introduced and partial medial meniscectomy of the loose and torn portion performed. Edge of meniscus completed with arthroscopic Wand. Arthroscopic Wand used to perform chondroplasty of the patellofemoral articulation and the medial femoral condyle. Shaver reintroduced and a major synovectomy was needed to be performed of the anterior fat pad and extensive synovium as well as medial and lateral plica. Hypertrophic synovium occupied the medial gutter and impinged on the medial femoral condyle. Bleeding points coagulated with Wand. Knee inspected, no loose pieces noted. 1 liter of irrigant infused and suction out. Arthroscopic cannulas removed. Skin closed with 4 nylon interrupted suture. Local anesthetic with 0.25% Marcaine. Sterile dressing applied. Patient awoken from anesthesia, extubated and taken to recovery room in stable condition. All sponge needle and instrument counts correct at the end of the case. Estimated Blood Loss 5 Tourniquet Time Total Tourniquet Time: 0 Drains No Packing No Pathology None sent Complications None Condition Stable Disposition PACU [facility] Billing Surgery - Charge Forward: Surgery Billing ([id number], [id number])
[2025-02-05] MEDS: fentaNYL CITRATE INJ (*CRX) 100 MCG/2 ML VIAL 25 MCG IV PUSH ×3 (09:07→09:16)
[2025-02-05] MEDS: oxyCODONE HCL (*CRX) 5 MG TAB IR PO (09:43)
== END 2025-02-05 10:10 | disposition home or self-care (01) ==
PROVIDERS: PCP Nurse Practitioner Family; Visit Provider Orthopaedic Surgery
PROC: (CPT 29870; principal; 2025-02-05 07:30)
DX: S83.232A Complex tear of medial meniscus, current injury, left knee, initial encounter (principal); M25.462 Effusion, left knee; M65.862 Other synovitis and tenosynovitis, left lower leg; M94.262 Chondromalacia, left knee; G89.29 Other chronic pain; M17.11 Unilateral primary osteoarthritis, right knee; F12.90 Cannabis use, unspecified, uncomplicated; X58.XXXA Exposure to other specified factors, initial encounter; E66.9 Obesity, unspecified; Z68.37 Body mass index [BMI] 37.0-37.9, adult; Z98.890 Other specified postprocedural states; Z87.891 Personal history of nicotine dependence; Z80.41 Family history of malignant neoplasm of ovary; Z82.49 Family history of ischemic heart disease and other diseases of the circulatory system
CPT/HCPCS: 29881; 29876; A9270; J0690; J1100; J1885; J2250; J2405; J2704; J3010; J7120

== ENCOUNTER 2025-02-24 10:48 | Outpatient (CLI) | payer OTHER, SELFPAY ==
--- OUTSIDE RECORDS SUMMARY | 2025-02-24 10:56 | XMS_ITS | Clinical Summary ---
Author Organization [facility] Health Address [address] [place] [address] Care Team Providers Care Silver Buffer Name Role Phone Unavailable Primary Care Provider [...]
--- OUTSIDE RECORDS SUMMARY | 2025-02-24 10:56 | XMS_ITS | Encounter Summary ---
Author Organization [facility] Health Address [address] [place] [address] Care Team Providers Care Manager Retention Name Role Phone Unavailable Primary Care Provider Unavailabl e Prior Encounters Date Type Department Care Team Description 08/18/2019 Converted CPS Chart Documents [facility] [address] [place] [id number] <No scans attached> 08/18/2019 Converted 13x Documents [facility] [address] [place] [phone] <No scans attached> Plan of Treatment Not on file Procedures Procedure Name Priority Date/Time Associated Diagnosis Comments PERIO CONSULT Routine 06/28/2020 2:00 AM FACTORY MANAGER ADJUST PARTIAL DENTURE - MAXILLARY Routine 06/01/2020 2:00 AM FACTORY MANAGER OS CONSULT Routine 05/28/2020 2:00 AM CDT [...] TEETH PER QUADRANT Routine 07/24/2017 2:00 AM FACTORY MANAGER ORAL HYGIENE INSTRUCTIONS Routine 2016 2:00 AM FACTORY MANAGER UR ANTIBACT IRR/QUAD Routine 07/24/2017 2:00 AM FACTORY MANAGER UL PERIODONTAL SCALING AND ROOT PLANING - [...]
--- OUTSIDE RECORDS SUMMARY | 2025-02-24 10:56 | XMS_ITS | Clinical Summary ---
Author Organization [facility] Address [address] [place] [address] Care Team Providers Care Race Car Mechanic Name Role Phone Unavailable Primary Care Provider Unavailabl e Source Comments [facility],non-owned Affiliates and Associated Physician Practices is amultiple site organization consisting of ambulatory clinics and hospital sitesin [place], [place], [place] and [place]. This disclosure is being madepursuant to the Care Everywhere program and may not contain all information available regarding this patient. Last updated 18.[facility] Allergies No known active allergies Medications * [...] and heating? Not hard at all 02/13/2024 [facility] [employer] [place] [facility] - Occupational Stress [...] place to sleep or slept in a care home (including now)? No 02/13/2024 Sex and Gender Information Value Date Recorded Sex Assigned at Not on file Legal Sex Male 3:40 PM [employer]UNDR[employer]PER[employer] Gender Identity Not on file Sexual Orientation [...] patient's age to complete this topic Insurance [facility] Advance Directives * Full Code (Latest Code Status on File) Date Activated Date Inactivated Comments 02/12/2024 3:50 PM 02/13/2024 5:26 PM
[2025-02-24 11:24] LABS: Hematocrit 41.7 % (42.0-52.0); Hemoglobin 13.8 g/dL (14.0-18.0); Mean Corpuscular HGB Conc 33.1 g/dl (32-36); Mean Corpuscular Hemoglobin 29.5 pg (26-34); Mean Corpuscular Volume 89.1 fl (80-100); Platelet Count Result 277 k/mm3 (150-375); Red Blood Count 4.68 M/mm3 (4.6-6.20); White Blood Count 5.8 K/mm3 (4.5-10.0)
[2025-02-24 11:55] LABS: Hemoglobin A1C 5.9 % (<5.7)
[2025-02-24 12:22] LABS: Alanine Aminotransferase 31 U/L (6-50); Albumin Level 4.2 g/dL (3.5-5.1); Alkaline Phosphatase 76 U/L (38-126); Anion Gap 6 mmol/L (4-12); Aspartate Amino Transferase 26 U/L (17-59); Bilirubin,Total 0.9 mg/dL (0.2-1.3); Blood Urea Nitrogen 15 mg/dL (9-20); Calcium 8.9 mg/dL (8.4-10.2); Carbon Dioxide 25 mmol/L (22-30); Chloride 104 mmol/L (98-107); Cholesterol 150 mg/dL (0-200); Estimated Glomerular Filt Rate > 60; Glucose 103 mg/dL (65-110); HDL Direct 52 mg/dL; Potassium 3.9 mmol/L (3.4-5.0); Sodium 135 mmol/L (137-145); Total Protein 7.1 g/dL (6.3-8.2); Triglycerides 104 mg/dL (<150)
[2025-02-24 17:08] LABS: Prostate Specific Antigen 1.1 ng/mL (< OR = 4.0)
== END 2025-02-24 10:49 | disposition home or self-care (01) ==
LOC: ANHLAB 10:50
PROVIDERS: PCP Nurse Practitioner Family; Visit Provider Nurse Practitioner Family
DX: E78.2 Mixed hyperlipidemia (principal); S83.232D Complex tear of medial meniscus, current injury, left knee, subsequent encounter; M17.11 Unilateral primary osteoarthritis, right knee; E66.9 Obesity, unspecified; Z13.1 Encounter for screening for diabetes mellitus; Z12.5 Encounter for screening for malignant neoplasm of prostate; X58.XXXD Exposure to other specified factors, subsequent encounter
CPT/HCPCS: 36415; 80053; 80061; 83036; 84153; 85027; G0103